=== PATIENT | male | born 1955 | race Caucasian/White ===

== ENCOUNTER → 2017-01-17 | Outpatient (CLI) | payer OTHER ==
--- NOTE | 2017-01-22 15:04 | P.ARTDOP ---
Arterial Doppler LOWER EXTREMITY ARTERIAL DOPPLER: DATE OF SERVICE: 01/17/2017 Reason for study: Status post leg stents. Doppler waveforms: Multiphasic bilaterally throughout. Pulse volume recording: []. Pressure gradients: Mild gradients above the knee. Ankle-brachial indices: 0.84 on the right and 0.94 on the left. Toe pressures: 86 on the right, 117 on the left Impression: Mild bilateral fem-pop disease.
== END | disposition home or self-care (01) ==
LOC: RADUSWWP 12:20
PROVIDERS: ATTEND Internal Medicine Cardiovascular Disease
DX: I73.9 Peripheral vascular disease, unspecified (principal)
CPT/HCPCS: 93922

== ENCOUNTER → 2017-01-22 | Outpatient (CLI) | payer OTHER ==
[2017-01-22 10:16] LABS: CH 30.2; CHCM 32.5; HCT 44.4 % (39.0-53.0); HDW 2.77; HGB 14.4 gm/dL (13.0-17.5); MCH 30.2 pg (25.0-35.0); MCHC 32.3 g/dL (31.0-37.0); MCV 93.4 fL (80.0-100.0); Mean Platelet Volume 7.1; RBC 4.75 m/uL (4.30-5.90); WBC 4.9 k/uL (3.8-10.6)
[2017-01-22 10:37] LABS: Anion Gap 10 mmol/L; Blood Urea Nitrogen 16 mg/dL (9-20); Carbon Dioxide 24 mmol/L (22-30); Chloride 103 mmol/L (98-107); Magnesium 1.8 mg/dL (1.6-2.3); Potassium 4.7 mmol/L (3.5-5.1); Sodium 137 mmol/L (137-145)
[2017-01-22 12:44] LABS: Non-African American GFR(MDRD) >60 (>60 ml/min/1.73 sqM)
== END | disposition home or self-care (01) ==
LOC: LABWHC1 09:52
PROVIDERS: ATTEND Internal Medicine Cardiovascular Disease
DX: I25.10 Atherosclerotic heart disease of native coronary artery without angina pectoris (principal)
CPT/HCPCS: 36415; 80051; 82565; 83735; 84520; 85027

== ENCOUNTER 2019-01-27 05:28 | Day surgery (SDC) | payer MEDICARE, OTHER ==
[2019-01-22 13:32] VITALS: BMI 34.8
[2019-01-27] MEDS ORDERED: LACTATED RINGERS 1,000 ML IV SCH (05:59)
[2019-01-27 07:19] VITALS: TEMP 98
[2019-01-27] MEDS ORDERED: LACTATED RINGERS 1,000 ML IV ONE ×2 (07:30)
[2019-01-27 07:31] LABS: Glucose,Whole Blood 55 mg/dL (75-99)
[2019-01-27] MEDS ORDERED: DEXTROSE 50% SYRINGE 50 ML IVP ONE (07:33)
[2019-01-27] MEDS ORDERED: DEXTROSE 50% SYRINGE 50 ML IVP STA (07:40)
[2019-01-27 07:55] LABS: Glucose,Whole Blood 135 mg/dL (75-99)
[2019-01-27] MEDS ORDERED: GLUCAGON 1 MG/ML VIAL ONE (08:06)
[2019-01-27] MEDS ORDERED: LABETALOL 5 MG/ML VIAL MDV ONE ×2 (08:06)
[2019-01-27] MEDS ORDERED: MIDAZOLAM 2 MG/2 ML VIAL ONE (08:06)
[2019-01-27] MEDS ORDERED: PROPOFOL 10 MG/ML 20 ML VIAL IV ONE (08:06)
[2019-01-27] MEDS ORDERED: fentaNYL (PF) 50 MCG/ML 2 ML AMP ONE (08:06)
--- NOTE | 2019-01-27 08:14 | P.GSHP ---
History of Present Illness H&P Date: 01/27/19 Chief Complaint: GI bleed This a 63-year-old male. Patient was found to have Hemoccult-positive stool. He presents today for colonoscopy. Past Medical History Past Medical History: Coronary Artery Disease (CAD), Heart Failure, COPD, Diabetes Mellitus, Fibromyalgia, GERD/Reflux, GI Bleed, Hyperlipidemia, Hypertension, Myocardial Infarction ([place]), Sleep Apnea/CPAP/BIPAP, Vascular Disorder Additional Past Medical History / Comment(s): RECTAL BLEEDING. BRIUSES EASILY. NO TX FOR SLEEP APNEA. NEUROPATHY FEET. Last Myocardial Infarction Date:: History of Any Multi-Drug Resistant Organisms: None Reported Past Surgical History: Coronary Bypass/CABG, Heart Catheterization With Stent Additional Past Surgical History / Comment(s): HEART STENTS X12. TRIPLE CABG. RT LEG VASCULAR SURG X5, LT LEG VASCULAR SURG X3. MYRTLE EYE SURG. COLONOSCOPY. Past Anesthesia/Blood Transfusion Reactions: No Reported Reaction Date of Last Stent Placement:: 07/2018 Smoking Status: Former smoker - Past Family History Mother Family Medical History: Cancer Medications and Allergies Home Medications Medication Instructions Recorded Confirmed Type Acetaminophen [Tylenol Extra 500 - 1,000 mg PO DAILY PRN 01/22/19 01/22/19 History Strength] Albuterol Sulfate [Proair Hfa] 1 - 2 puff INHALATION Q6HR PRN 01/22/19 01/22/19 History Atorvastatin [Lipitor] 80 mg PO HS 01/22/19 01/22/19 History Cetirizine HCl [Zyrtec] 10 mg PO DAILY 01/22/19 01/22/19 History Clopidogrel [Plavix] 75 mg PO DAILY 01/22/19 01/22/19 History Empagliflozin [Jardiance] 10 mg PO DAILY 01/22/19 01/22/19 History Ergocalciferol [Vitamin D2] 50,000 unit PO MOFR 01/22/19 01/22/19 History Fenofibrate Nanocrystallized 145 mg PO DAILY 01/22/19 01/22/19 History [Fenofibrate] Fluticasone/Umeclidin/Vilanter 1 inhalation INHALATION DAILY 01/22/19 01/22/19 History [Trelegy Ellipta 100-62.5-25] Furosemide [Lasix] 40 mg PO DAILY 01/22/19 01/22/19 History Gabapentin 800 mg PO QID 01/22/19 01/22/19 History HYDROcodone/APAP 10-325MG [[place] 1 tab PO QID PRN 01/22/19 01/22/19 History 10-325] Insulin NPL/Insulin Lispro 70 unit SQ HS 01/22/19 01/22/19 History [humaLOG MIX 75-25 VIAL] Insulin NPL/Insulin Lispro 90 unit SQ [id number] 01/22/19 01/22/19 History [humaLOG MIX 75-25 VIAL] Isosorbide Mononitrate [Isosorbide 30 mg PO DAILY 01/22/19 01/22/19 History Mononitrate ER] Metoprolol Tartrate [Lopressor] 25 mg PO DAILY 01/22/19 01/22/19 History Multivit-Min/Ferrous Sulfate [One 1 each PO DAILY 01/22/19 01/22/19 History Daily Multivitamin-Mineral] Omeprazole 20 mg PO DAILY 01/22/19 01/22/19 History Potassium Chloride ER [K-Dur 10] 20 meq PO DAILY 01/22/19 01/22/19 History Pregabalin [Lyrica] 150 mg PO TID 01/22/19 01/22/19 History Ranitidine HCl [Zantac] 300 mg PO DAILY 01/22/19 01/22/19 History Ranolazine [Ranexa] 500 mg PO BID 01/22/19 01/22/19 History Sacubitril/Valsartan [Entresto 49 1 each PO DAILY 01/22/19 01/22/19 History mg-51 mg Tablet] Simvastatin [Zocor] 20 mg PO HS 01/22/19 01/22/19 History Allergies Allergy/AdvReac Type Severity Reaction Status Date / Time albiglutide [From Tanzeum] Allergy Diarrhea Unverified 01/22/19 12:43 duloxetine HCl Allergy Swelling Unverified 01/22/19 12:43 [From Cymbalta] Surgical - Exam Vital Signs Temp Pulse Resp BP Pulse Ox 98.0 F 87 18 203/96 94 L 01/27/19 07:15 01/27/19 07:15 01/27/19 07:15 01/27/19 07:15 01/27/19 07:15 - General well developed, well nourished, no distress - Eyes PERRL - ENT normal pinna - Neck no masses - Respiratory normal expansion - Cardiovascular Rhythm: regular - Abdomen Abdomen: soft, non tender Results - Labs Abnormal Lab Results - Last 24 Hours (Table) 01/27/19 01/27/19 Range/Units 07:28 07:53 POC Glucose (mg/dL) 55 L 135 H (75-99) mg/dL Assessment and Plan Assessment: GI bleed. We'll perform colonoscopy.
--- NOTE | 2019-01-27 08:36 | P.OP ---
Date of Procedure: 01/27/19 Preoperative Diagnosis: GI bleed Postoperative Diagnosis: Rectal polyp, transverse colon polyp Procedure(s) Performed: Colonoscopy Anesthesia: MAC Surgeon: Carlos Mendoza Pathology: other (Rectal polyp, transverse colon polyp) Condition: stable Disposition: PACU Description of Procedure: The patient's placed on the endoscopy table in the lateral position. He received IV sedation. Digital rectal exam was performed which revealed mild internal/external hemorrhoids.. The flexible colonoscope was then placed patient anus and passed throughout the entire colon. The ileocecal valve was visualized. The cecum appeared normal. The right colon appeared normal. In the transverse colon there was a polyp seen this removed with the snare. Scope was then brought back and the remainder of the transverse colon appeared normal. The descending colon appeared normal. The sigmoid colon was normal. Scope was then brought back the rectum and a small polyp was seen was removed with the snare and cold forcep. Scope was withdrawn for patient. There were internal and external hemorrhoids. There was no significant GI bleed seen. The patient may have had GI bleed from his hemorrhoids or polyp.
[2019-01-27 08:37] VITALS: RESP 16
[2019-01-27 08:38] LABS: Glucose,Whole Blood 138 mg/dL (75-99)
[2019-01-27 09:02] VITALS: BP 180/90; PULSE 70
== END 2019-01-27 09:25 | disposition home or self-care (01) ==
LOC: ORWHC2ENDO 05:28
PROVIDERS: ATTEND Surgery
DX: K62.1 Rectal polyp (principal); D12.3 Benign neoplasm of transverse colon; K64.8 Other hemorrhoids; K64.4 Residual hemorrhoidal skin tags; K92.1 Melena; I25.10 Atherosclerotic heart disease of native coronary artery without angina pectoris; I11.0 Hypertensive heart disease with heart failure; I50.9 Heart failure, unspecified; Z87.891 Personal history of nicotine dependence; J44.9 Chronic obstructive pulmonary disease, unspecified; E11.42 Type 2 diabetes mellitus with diabetic polyneuropathy; M79.7 Fibromyalgia; K21.9 Gastro-esophageal reflux disease without esophagitis; E78.5 Hyperlipidemia, unspecified; I25.2 Old myocardial infarction; G47.30 Sleep apnea, unspecified; Z95.1 Presence of aortocoronary bypass graft; Z95.5 Presence of coronary angioplasty implant and graft; Z79.02 Long term (current) use of antithrombotics/antiplatelets; Z79.4 Long term (current) use of insulin; Z79.891 Long term (current) use of opiate analgesic; Z79.51 Long term (current) use of inhaled steroids; Z79.899 Other long term (current) drug therapy; Z88.8 Allergy status to other drugs, medicaments and biological substances
CPT/HCPCS: 88305; 45385; J2250; J1610; J3010; J2704

== ENCOUNTER 2020-04-16 12:32 | Inpatient (IN) | payer MEDICARE ==
[2020-04-16 13:00] LABS: Glucose,Whole Blood >600 mg/dL (75-99)
[2020-04-16] MEDS ORDERED: INSULIN REGULAR BOLUS (FROM DRIP BAG) IV ONE (13:07)
[2020-04-16] MEDS ORDERED: SODIUM CHLORIDE 0.9% 1,000 ML IV ONE (13:07)
[2020-04-16] MEDS ORDERED: ASPIRIN 81 MG PO STA (13:08)
[2020-04-16] MEDS ORDERED: NITROGLYCERIN OINT 1 INCH/GM PACKET TOPICAL STA (13:08)
[2020-04-16] MEDS ORDERED: ONDANSETRON 4 MG/2 ML VIAL IVP STA (13:09)
--- NOTE | 2020-04-16 13:12 | ED ---
General Adult HPI - General Chief complaint: Weakness Stated complaint: No energy, not eating Time Seen by Provider: 04/16/20 12:54 Source: patient, family, RN notes reviewed Mode of arrival: wheelchair Limitations: no limitations - History of Present Illness Initial comments: Patient is a pleasant 65-year-old male presenting to the emergency department with fatigue and vomiting. Symptoms started several days ago and have progressed. Symptoms much worse today. Patient feels generally weak all over and is having difficulty getting up and moving around. Patient amiss to having some chest discomfort. Patient does have strong cardiac history of previous CABG and multiple previous stents. Patient has had nausea and vomiting. Unclear last time patient checked his blood sugar. No isolated area of weakness. No confusion. - Related Data Home Medications Medication Instructions Recorded Confirmed Acetaminophen [Tylenol Extra 500 - 1,000 mg PO DAILY PRN 01/22/19 01/22/19 Strength] Albuterol Sulfate [Proair Hfa] 1 - 2 puff INHALATION Q6HR PRN 01/22/19 01/22/19 Atorvastatin [Lipitor] 80 mg PO HS 01/22/19 01/22/19 Cetirizine HCl [Zyrtec] 10 mg PO DAILY 01/22/19 01/22/19 Clopidogrel [Plavix] 75 mg PO DAILY 01/22/19 01/22/19 Empagliflozin [Jardiance] 10 mg PO DAILY 01/22/19 01/22/19 Ergocalciferol [Vitamin D2] 50,000 unit PO MOFR 01/22/19 01/22/19 Fenofibrate Nanocrystallized 145 mg PO DAILY 01/22/19 01/22/19 [Fenofibrate] Fluticasone/Umeclidin/Vilanter 1 inhalation INHALATION DAILY 01/22/19 01/22/19 [Trelegy Ellipta 100-62.5-25] Furosemide [Lasix] 40 mg PO DAILY 01/22/19 01/22/19 Gabapentin 800 mg PO QID 01/22/19 01/22/19 HYDROcodone/APAP 10-325MG [[place] 1 tab PO QID PRN 01/22/19 01/22/19 10-325] Insulin NPL/Insulin Lispro 70 unit SQ HS 01/22/19 01/22/19 [humaLOG MIX 75-25 VIAL] Insulin NPL/Insulin Lispro [facility] 01/22/19 01/22/19 [humaLOG MIX 75-25 VIAL] Isosorbide Mononitrate [Isosorbide 30 mg PO DAILY 01/22/19 01/22/19 Mononitrate ER] Metoprolol Tartrate [Lopressor] 25 mg PO DAILY 01/22/19 01/22/19 Multivit-Min/Ferrous Sulfate [One 1 each PO DAILY 01/22/19 01/22/19 Daily Multivitamin-Mineral] Omeprazole 20 mg PO DAILY 01/22/19 01/22/19 Potassium Chloride ER [K-Dur 10] 20 meq PO DAILY 01/22/19 01/22/19 Pregabalin [Lyrica] 150 mg PO TID 01/22/19 01/22/19 Ranitidine HCl [Zantac] 300 mg PO DAILY 01/22/19 01/22/19 Ranolazine [Ranexa] 500 mg PO BID 01/22/19 01/22/19 Sacubitril/Valsartan [Entresto 49 1 each PO DAILY 01/22/19 01/22/19 mg-51 mg Tablet] Simvastatin [Zocor] 20 mg PO HS 01/22/19 01/22/19 Allergies Allergy/AdvReac Type Severity Reaction Status Date / Time albiglutide [From Tanzeum] Allergy Diarrhea Verified 04/16/20 12:41 duloxetine HCl Allergy Swelling Verified 04/16/20 12:41 [From Cymbalta] Review of Systems ROS Statement: Those systems with pertinent positive or pertinent negative responses have been documented in the HPI. ROS Other: All systems not noted in ROS Statement are negative. Constitutional: Denies: fever Eyes: Denies: eye pain ENT: Denies: ear pain Respiratory: Denies: cough Cardiovascular: Reports: chest pain Endocrine: Reports: fatigue Gastrointestinal: Reports: nausea, vomiting. Denies: abdominal pain Genitourinary: Denies: dysuria Musculoskeletal: Denies: back pain Skin: Denies: as per HPI Neurological: Reports: weakness (Generalized). Denies: headache, confusion Past Medical History Past Medical History: Coronary Artery Disease (CAD), Heart Failure, COPD, Diabetes Mellitus, Fibromyalgia, GERD/Reflux, GI Bleed, Hyperlipidemia, Hypertension, Myocardial Infarction ([place]), Sleep Apnea/CPAP/BIPAP, Vascular Disorder Additional Past Medical History / Comment(s): RECTAL BLEEDING. BRIUSES EASILY. NO TX FOR SLEEP APNEA. NEUROPATHY FEET. Last Myocardial Infarction Date:: History of Any Multi-Drug Resistant Organisms: None Reported Past Surgical History: Coronary Bypass/CABG, Heart Catheterization With Stent Additional Past Surgical History / Comment(s): HEART STENTS X12. TRIPLE CABG. RT LEG VASCULAR SURG X5, LT LEG VASCULAR SURG X3. MYRTLE EYE SURG. COLONOSCOPY. Past Anesthesia/Blood Transfusion Reactions: No Reported Reaction Date of Last Stent Placement:: 07/2018 Past Psychological History: No Psychological Hx Reported Smoking Status: Never smoker Past Alcohol Use History: Daily Past Drug Use History: None Reported - Past Family History Mother Family Medical History: Cancer General Exam Limitations: no limitations General appearance: other (Patient is slightly drowsy. Patient does open eyes to voice and communicates and follow commands.) Head exam: Present: normocephalic Eye exam: Present: normal appearance, PERRL ENT exam: Present: normal oropharynx Neck exam: Present: normal inspection Respiratory exam: Present: normal lung sounds bilaterally. Absent: chest wall tenderness Cardiovascular Exam: Present: regular rate, normal rhythm Expanded Peripheral pulses: 2+: Radial (R), Radial (L), Posterior Tibialis (R), Posterior Tibialis (L) GI/Abdominal exam: Present: soft. Absent: tenderness Extremities exam: Present: normal inspection Neurological exam: Present: alert (Slightly drowsy), oriented X3, CN II-XII intact. Absent: motor sensory deficit Psychiatric exam: Present: flat affect Skin exam: Present: normal color Course Vital Signs 04/16/20 12:41 Temperature 97.9 F Pulse Rate 105 H Respiratory 18 Rate Blood Pressure 134/73 O2 Sat by Pulse 99 Oximetry EKG Findings - EKG Comments: EKG Findings:: Normal sinus rhythm at 100. NH 158. QRS 98. QT 360. QTC 464. Superior axis. Inferior Q waves. Q wave in V1. No acute ST change. Medical Decision Making - Medical Decision Making Patient reevaluated. Patient and family updated. Case discussed with Dr. Javed, who will admit covering for Dr. Marin. Case also discussed with Dr. Michaud who agrees with ICU admission. He will consult - Lab Data Result diagrams: 04/16/20 13:21 04/16/20 13:21 Lab Results 04/16/20 04/16/20 04/16/20 Range/Units 12:53 13:21 13:21 WBC 12.5 H (3.8-10.6) k/uL RBC 5.39 (4.30-5.90) m/uL Hgb 16.5 (13.0-17.5) gm/dL Hct 53.9 H (39.0-53.0) % MCV 100.1 H (80.0-100.0) fL MCH 30.6 (25.0-35.0) pg MCHC 30.5 L (31.0-37.0) g/dL RDW 13.1 (11.5-15.5) % Plt Count 323 (150-450) k/uL Neutrophils % 91 % Lymphocytes % 3 % Monocytes % 5 % Eosinophils % 0 % Basophils % 0 % Neutrophils # 11.4 H (1.3-7.7) k/uL Lymphocytes # 0.4 L (1.0-4.8) k/uL Monocytes # 0.7 (0-1.0) k/uL Eosinophils # 0.0 (0-0.7) k/uL Basophils # 0.0 (0-0.2) k/uL Hypochromasia Moderate PT 9.4 (9.0-12.0) sec INR 0.9 (<1.2) APTT 23.0 (22.0-30.0) sec Sodium (137-145) mmol/L Potassium (3.5-5.1) mmol/L Chloride (98-107) mmol/L Carbon Dioxide (22-30) mmol/L Anion Gap mmol/L BUN (9-20) mg/dL Creatinine (0.66-1.25) mg/dL Est GFR (CKD-EPI)AfAm (>60 ml/min/1.73 sqM) Est GFR (CKD-EPI)NonAf (>60 ml/min/1.73 sqM) Glucose (74-99) mg/dL POC Glucose (mg/dL) >600 H (75-99) mg/dL POC Glu Commercial Administrator ID Rajiv Dana Calcium (8.4-10.2) mg/dL Magnesium (1.6-2.3) mg/dL Total Bilirubin (0.2-1.3) mg/dL AST (17-59) U/L ALT (4-49) U/L Alkaline Phosphatase (38-126) U/L Troponin I (0.000-0.034) ng/mL Total Protein (6.3-8.2) g/dL Albumin (3.5-5.0) g/dL Amylase (30-110) U/L Lipase (23-300) U/L Acetone, Qual (Negative) 04/16/20 04/16/20 04/16/20 Range/Units 13:21 13:21 14:25 WBC (3.8-10.6) k/uL RBC (4.30-5.90) m/uL Hgb (13.0-17.5) gm/dL Hct (39.0-53.0) % MCV (80.0-100.0) fL MCH (25.0-35.0) pg MCHC (31.0-37.0) g/dL RDW (11.5-15.5) % Plt Count (150-450) k/uL Neutrophils % % Lymphocytes % % Monocytes % % Eosinophils % % Basophils % % Neutrophils # (1.3-7.7) k/uL Lymphocytes # (1.0-4.8) k/uL Monocytes # (0-1.0) k/uL Eosinophils # (0-0.7) k/uL Basophils # (0-0.2) k/uL Hypochromasia PT (9.0-12.0) sec INR (<1.2) APTT (22.0-30.0) sec Sodium 132 L (137-145) mmol/L Potassium 5.7 H (3.5-5.1) mmol/L Chloride 92 L (98-107) mmol/L Carbon Dioxide 5 L* (22-30) mmol/L Anion Gap 35 mmol/L BUN 40 H (9-20) mg/dL Creatinine 1.83 H (0.66-1.25) mg/dL Est GFR (CKD-EPI)AfAm 44 (>60 ml/min/1.73 sqM) Est GFR (CKD-EPI)NonAf 38 (>60 ml/min/1.73 sqM) Glucose 716 H* (74-99) mg/dL POC Glucose (mg/dL) >600 H (75-99) mg/dL POC Glu Commercial Administrator ID Nasrin Alba Calcium 9.8 (8.4-10.2) mg/dL Magnesium 2.5 H (1.6-2.3) mg/dL Total Bilirubin 1.0 (0.2-1.3) mg/dL AST 23 (17-59) U/L ALT 20 (4-49) U/L Alkaline Phosphatase 112 (38-126) U/L Troponin I 0.421 H* (0.000-0.034) ng/mL Total Protein 7.3 (6.3-8.2) g/dL Albumin 4.7 (3.5-5.0) g/dL Amylase 262 H (30-110) U/L Lipase 2077 H (23-300) U/L Acetone, Qual Positive (Negative) - Radiology Data Radiology results: image reviewed (Chest x-ray shows borderline cardiomegaly. Minimal right effusion.) Critical Care Time Critical Care Time: Yes Total Critical Care Time: 33 Disposition Clinical Impression: Diabetic ketoacidosis Disposition: ADMITTED IP TO THIS HOSP Condition: Critical Is patient prescribed a controlled substance at d/c from ED?: No Referrals: Sindy Kamara DO [Primary Care Provider] - 1-2 days Decision Time: 14:32
[2020-04-16] MEDS: INSULIN REGULAR 100 UNIT in SODIUM CHLORIDE 0.9% 100 ML IV SCH (13:31)
[2020-04-16 13:32] LABS: Basophils % (A) 0 %; Eosinophils % (A) 0 %; HCT 53.9 % (39.0-53.0); HGB 16.5 gm/dL (13.0-17.5); Hypochromasia Moderate; Lymphocytes # (A) 0.4 k/uL (1.0-4.8); Lymphocytes % (A) 3 %; MCH 30.6 pg (25.0-35.0); MCHC 30.5 g/dL (31.0-37.0); MCV 100.1 fL (80.0-100.0); Mean Platelet Volume 8.4; Monocytes # (A) 0.7 k/uL (0-1.0); Monocytes % (A) 5 %; Neutrophils # (A) 11.4 k/uL (1.3-7.7); Neutrophils % (A) 91 %; Platelet Count 323 k/uL (150-450); RBC 5.39 m/uL (4.30-5.90); RDW 13.1 % (11.5-15.5); WBC 12.5 k/uL (3.8-10.6)
[2020-04-16 13:37] LABS: African American GFR (CKD) 44 (>60 ml/min/1.73 sqM); Anion Gap 35 mmol/L; Blood Urea Nitrogen 40 mg/dL (9-20); Chloride 92 mmol/L (98-107); Potassium 5.7 mmol/L (3.5-5.1); Sodium 132 mmol/L (137-145)
[2020-04-16 13:38] LABS: ALT 20 U/L (4-49); AST 23 U/L (17-59); Albumin 4.7 g/dL (3.5-5.0); Alkaline Phosphatase 112 U/L (38-126); Amylase 262 U/L (30-110); Calcium 9.8 mg/dL (8.4-10.2); Magnesium 2.5 mg/dL (1.6-2.3); Non-African American GFR(CKD) 38 (>60 ml/min/1.73 sqM); Total Protein 7.3 g/dL (6.3-8.2)
[2020-04-16 13:42] LABS: INR 0.9 (<1.2); Prothrombin Time 9.4 sec (9.0-12.0)
[2020-04-16 13:51] LABS: Carbon Dioxide 5 mmol/L (22-30)
[2020-04-16 13:52] LABS: Glucose 716 mg/dL (74-99)
--- NOTE | 2020-04-16 13:57 | XR ---
EXAMINATION TYPE: XR chest 2V DATE OF EXAM: 04/16/2020 CLINICAL HISTORY: Chest pain TECHNIQUE: Frontal and lateral views of the chest are obtained. COMPARISON: Chest radiograph 03/13/2012. FINDINGS: Sternotomy wires and fixation plate and screws. Borderline cardiac megaly. Pulmonary vascu lature is normal. There is no focal air space opacity or pneumothorax seen. Small right pleural effus ion. The osseous structures are intact. IMPRESSION: 1. Borderline cardiomegaly. 2. Small right pleural effusion.
[2020-04-16 14:28] LABS: Glucose,Whole Blood >600 mg/dL (75-99)
[2020-04-16] MEDS ORDERED: NALOXONE 0.4 MG/ML 1 ML VIAL IV PRN (14:33)
[2020-04-16] MEDS ORDERED: HEPARIN SODIUM,PORCINE 5,000 UNIT/ML 1 ML VIAL IV ONE (14:36)
[2020-04-16 15:25] LABS: Glucose,Whole Blood 522 mg/dL (75-99)
[2020-04-16] MEDS: HEPARIN SOD,PORK IN 0.45% NACL 25,000 UNIT in 0.45% NACL 1 250ML.BAG IV SCH (15:38)
[2020-04-16] MEDS: SODIUM CHLORIDE 0.9% 1,000 ML IV SCH ×2 (15:42→21:17)
[2020-04-16 16:09] LABS: Glucose,Whole Blood 482 mg/dL (75-99)
[2020-04-16 17:15] LABS: Glucose,Whole Blood 467 mg/dL (75-99)
[2020-04-16] MEDS ORDERED: THIAMINE 100 MG/ML 2 ML VIAL IM STA (17:38)
[2020-04-16] MEDS ORDERED: LORazepam 2 MG/ML INJ IV PRN ×2 (17:38)
[2020-04-16 18:42] LABS: Glucose,Whole Blood 348 mg/dL (75-99)
[2020-04-16 19:14] LABS: Glucose,Whole Blood >600 mg/dL (75-99)
[2020-04-16 19:16] LABS: Glucose,Whole Blood 361 mg/dL (75-99)
[2020-04-16 19:33] LABS: Appearance,Urine Clear (Clear); Bilirubin,Urine 1+ (Negative); Blood,Urine Small (Negative); Color,Urine Yellow; Glucose,Urine (UA) 4+ (Negative); Hyaline Casts,Urine 10 /lpf (0-2); Leukocyte Esterase,Urine Negative (Negative); Mucus,Urine Rare /hpf; Nitrite,Urine Negative (Negative); PH, Urine 5.5 (5.0-8.0); Protein,Urine 2+ (Negative); RBC,Urine 1 /hpf (0-5); Specific Gravity,Urine 1.026 (1.001-1.035); WBC,Urine 1 /hpf (0-5)
[2020-04-16 19:35] LABS: Ketones,Urine 4+ (Negative)
[2020-04-16 20:15] LABS: Glucose,Whole Blood 347 mg/dL (75-99)
[2020-04-16 20:55] LABS: Glucose,Whole Blood 286 mg/dL (75-99)
[2020-04-16] MEDS: DEXTROSE 5%-0.45% NACL 1,000 ML with POTASSIUM CHLORIDE 20 MEQ IV SCH ×2 (21:18)
[2020-04-16 22:06] LABS: Glucose,Whole Blood 207 mg/dL (75-99)
--- NOTE | 2020-04-16 22:29 | P.HPIM ---
History of Present Illness H&P Date: 04/16/20 Chief Complaint: Generalized weakness Mr. Gonzalez is a 65-year-old male with a past medical history of insulin- dependent diabetes mellitus, coronary artery disease status post CABG, COPD, fibromyalgia, GERD, history of GI bleed, hypertension, hyperlipidemia, obstru ctive sleep apnea, severe peripheral vascular disease, bilateral lower extremity neuropathy, multiple vascular procedures done for bilateral lower extremities coming in with a chief complaint of vomiting and fatigue. Patient is a poor historian, his friend and son at the bedside and tried to provide as the history. His friend mentions that for the past 3 to 4 weeks patient has decreased p.o. intake and for 1 week he has been having generalized weakness. Patient mentioned that for the past couple of days he did not take his insulin. He denies having any fevers chills or rigors. He was only complaining of generalized weakness. Patient also has history of extensive alcohol abuse, he drinks 2/5 every day. Complete review of systems could not be done as the patient seems to be confused at times. In the emergency patient had EKG done that was showing normal sinus rhythm with no acute ST or T wave changes. He had a white count of 12.5, hemoglobin 16.5 with MCV 100.1, sodium 132, potassium 4.7, chloride 92, bicarb 5, BUN 40, creatinine 1.83, blood glucose of 716, troponin 0 0.764, amylase 2632, lipase 2077. So the patient was found to be in DKA, he was started on insulin drip and due to elevated troponins he was started on heparin drip as well and admitted to the ICU for further management. Review of Systems REVIEW OF SYSTEMS: CONSTITUTIONAL: No fever, no malaise, no fatigue. HEENT: No recent visual problems or hearing problems. Denied any sore throat. CARDIOVASCULAR: No orthopnea, PND, no palpitations, no syncope. PULMONARY: No shortness of breath, no cough, no hemoptysis. GASTROINTESTINAL: No diarrhea, no nausea,no abdominal pain. Patient did throw up while having a seizure. NEUROLOGICAL: No headaches, no weakness, no numbness. HEMATOLOGICAL: Denies any bleeding or petechiae. GENITOURINARY: Denies any burning micturition, frequency, or urgency. MUSCULOSKELETAL/RHEUMATOLOGICAL: Denies any joint pain, swelling, or any muscle pain. ENDOCRINE: Denies any polyuria or polydipsia. The rest of the 13-point review of systems is negative. ROS unobtainable: due to mental status Past Medical History Past Medical History: Coronary Artery Disease (CAD), Heart Failure, COPD, Diabetes Mellitus, Fibromyalgia, GERD/Reflux, GI Bleed, Hyperlipidemia, Hyper tension, Myocardial Infarction (MA), Sleep Apnea/CPAP/BIPAP, Vascular Disorder Additional Past Medical History / Comment(s): RECTAL BLEEDING. BRIUSES EASILY. NO TX FOR SLEEP APNEA. NEUROPATHY FEET. Last Myocardial Infarction Date:: History of Any Multi-Drug Resistant Organisms: None Reported Past Surgical History: Coronary Bypass/CABG, Heart Catheterization With Stent Additional Past Surgical History / Comment(s): HEART STENTS X12. TRIPLE CABG. RT LEG VASCULAR SURG X5, LT LEG VASCULAR SURG X3. MYRTLE EYE SURG. COLONOSCOPY. Past Anesthesia/Blood Transfusion Reactions: No Reported Reaction Date of Last Stent Placement:: 07/2018 Past Psychological History: No Psychological Hx Reported Smoking Status: Former smoker Past Alcohol Use History: Daily Additional Past Alcohol Use History / Comment(s): SMOKED 20 YEARS, 1 1/2 PPD, QUIT 1998. FIFTH LIQUOR PER WEEK. Past Drug Use History: None Reported - Past Family History Mother Family Medical History: Cancer Medications and Allergies Home Medications Medication Instructions Recorded Confirmed Type Acetaminophen [Tylenol Extra 500 - 1,000 mg PO DAILY PRN 01/22/19 04/16/20 History Strength] Cetirizine HCl [Zyrtec] 10 mg PO DAILY 01/22/19 04/16/20 History Clopidogrel [Plavix] 75 mg PO DAILY 01/22/19 04/16/20 History Empagliflozin [Jardiance] 10 mg PO DAILY 01/22/19 01/22/19 History Ergocalciferol [Vitamin D2] 50,000 unit PO MOFR 01/22/19 01/22/19 History Fenofibrate Nanocrystallized 145 mg PO DAILY 01/22/19 01/22/19 History [Fenofibrate] Fluticasone/Umeclidin/Vilanter 1 inhalation INHALATION DAILY 01/22/19 01/22/19 History [Trelegy Ellipta 100-62.5-25] Furosemide [Lasix] 40 mg PO DAILY 01/22/19 04/16/20 History Gabapentin 800 mg PO QID 01/22/19 01/22/19 History HYDROcodone/APAP 10-325MG [[place] 1 tab PO QID PRN 01/22/19 04/16/20 History 10-325] Insulin NPL/Insulin Lispro 70 unit SQ HS 01/22/19 04/16/20 History [humaLOG MIX 75-25 VIAL] Insulin NPL/Insulin Lispro 90 unit SQ AC-[id number] 01/22/19 04/16/20 History [humaLOG MIX 75-25 VIAL] Isosorbide Mononitrate [Isosorbide 30 mg PO DAILY 01/22/19 04/16/20 History Mononitrate ER] Metoprolol Tartrate [Lopressor] 50 mg PO BID 01/22/19 04/16/20 History Multivit-Min/Ferrous Sulfate [One 1 each PO DAILY 01/22/19 01/22/19 History Daily Multivitamin-Mineral] Omeprazole 20 mg PO DAILY 01/22/19 04/16/20 History Potassium Chloride ER [K-Dur 10] 20 meq PO DAILY 01/22/19 04/16/20 History Pregabalin [Lyrica] 150 mg PO TID 01/22/19 04/16/20 History Ranitidine HCl [Zantac] 300 mg PO DAILY 01/22/19 01/22/19 History Ranolazine [Ranexa] 500 mg PO BID 01/22/19 04/16/20 History Sacubitril/Valsartan [Entresto 49 1 each PO DAILY 01/22/19 01/22/19 History mg-51 mg Tablet] Simvastatin [Zocor] 20 mg PO HS 01/22/19 01/22/19 History Aspirin EC [Ecotrin Low Dose] 81 mg PO DAILY 04/16/20 04/16/20 History Atorvastatin [Lipitor] 40 mg PO HS 04/16/20 History Allergies Allergy/AdvReac Type Severity Reaction Status Date / Time albiglutide [From Tanzeum] Allergy Diarrhea Verified 04/16/20 14:39 duloxetine HCl Allergy Swelling Verified 04/16/20 14:39 [From Cymbalta] Physical Exam Vitals: Vital Signs Temp Pulse Pulse Resp BP BP Pulse Ox 04/16/20 21:00 96 16 168/92 94 L 04/16/20 20:00 98.5 F 93 19 168/92 95 04/16/20 19:00 96 19 168/92 95 04/16/20 18:49 97 94 L 04/16/20 18:00 105 H 17 138/84 98 04/16/20 17:00 102 H 22 147/93 94 L 04/16/20 16:00 97.6 F 105 H 24 116/102 97 04/16/20 15:30 95 22 155/79 98 04/16/20 15:00 97 162/93 98 04/16/20 14:30 88 146/73 97 04/16/20 14:00 94 147/66 96 04/16/20 13:30 89 172/81 94 L 04/16/20 12:41 97.9 F 105 H 18 134/73 99 Intake and Output 04/16/20 04/16/20 04/16/20 06:59 14:59 22:59 Intake Total 1200 Output Total 385 Balance 815 Intake: IV 1200 Sodium Chloride 0.9% 1, 1200 000 ml @ 200 mls/hr IV . Q5H [facility] Rx#:[id number] Output: Urine 385 Other: # Voids 0 # Bowel Movements 1 Weight 81.647 kg PHYSICAL EXAMINATION: GENERAL: slightly confused , poorly kempt HEENT: Pupils are round and equally reacting to light. EOMI. No scleral icterus. No conjunctival pallor. Normocephalic, atraumatic. Oral mucosa is dry. CARDIOVASCULAR: S1 and S2 present. No murmurs, rubs, or gallops. PULMONARY: Bilateral breath sounds are positive. No wheeze or crackles. ABDOMEN: Soft, mild tenderness in the right upper quadrant and epigastric area, nondistended, normoactive bowel sounds. No palpable organomegaly. MUSCULOSKELETAL: No joint swelling or deformity. EXTREMITIES: No cyanosis, clubbing, or pedal edema. Hyperpigmented and extremely tender to touch NEUROLOGICAL: Gross neurological examination did not reveal any focal deficits. Results CBC & Chem 7: 04/16/20 13:21 04/16/20 13:21 Labs: Abnormal Lab Results - Last 24 Hours (Table) 04/16/20 04/16/20 04/16/20 Range/Units 12:53 13:21 13:21 WBC 12.5 H (3.8-10.6) k/uL Hct 53.9 H (39.0-53.0) % MCV 100.1 H (80.0-100.0) fL MCHC 30.5 L (31.0-37.0) g/dL Neutrophils # 11.4 H (1.3-7.7) k/uL Lymphocytes # 0.4 L (1.0-4.8) k/uL APTT (22.0-30.0) sec Sodium 132 L (137-145) mmol/L Potassium 5.7 H (3.5-5.1) mmol/L Chloride 92 L (98-107) mmol/L Carbon Dioxide 5 L* (22-30) mmol/L BUN 40 H (9-20) mg/dL Creatinine 1.83 H (0.66-1.25) mg/dL Glucose 716 H* (74-99) mg/dL POC Glucose (mg/dL) >600 H (75-99) mg/dL Magnesium 2.5 H (1.6-2.3) mg/dL CK-MB (CK-2) (0.0-2.4) ng/mL Troponin I (0.000-0.034) ng/mL Amylase 262 H (30-110) U/L Lipase 2077 H (23-300) U/L Urine Protein (Negative) Urine Glucose (UA) (Negative) Urine Ketones (Negative) Urine Blood (Negative) Urine Bilirubin (Negative) Hyaline Casts (0-2) /lpf Urine Mucus (None) /hpf 04/16/20 04/16/20 04/16/20 Range/Units 13:21 14:25 15:23 WBC (3.8-10.6) k/uL Hct (39.0-53.0) % MCV (80.0-100.0) fL MCHC (31.0-37.0) g/dL Neutrophils # (1.3-7.7) k/uL Lymphocytes # (1.0-4.8) k/uL APTT (22.0-30.0) sec Sodium (137-145) mmol/L Potassium (3.5-5.1) mmol/L Chloride (98-107) mmol/L Carbon Dioxide (22-30) mmol/L BUN (9-20) mg/dL Creatinine (0.66-1.25) mg/dL Glucose (74-99) mg/dL POC Glucose (mg/dL) >600 H 522 H (75-99) mg/dL Magnesium (1.6-2.3) mg/dL CK-MB (CK-2) (0.0-2.4) ng/mL Troponin I 0.421 H* (0.000-0.034) ng/mL Amylase (30-110) U/L Lipase (23-300) U/L Urine Protein (Negative) Urine Glucose (UA) (Negative) Urine Ketones (Negative) Urine Blood (Negative) Urine Bilirubin (Negative) Hyaline Casts (0-2) /lpf Urine Mucus (None) /hpf 04/16/20 04/16/20 04/16/20 Range/Units 16:06 16:36 17:14 WBC (3.8-10.6) k/uL Hct (39.0-53.0) % MCV (80.0-100.0) fL MCHC (31.0-37.0) g/dL Neutrophils # (1.3-7.7) k/uL Lymphocytes # (1.0-4.8) k/uL APTT (22.0-30.0) sec Sodium (137-145) mmol/L Potassium (3.5-5.1) mmol/L Chloride (98-107) mmol/L Carbon Dioxide (22-30) mmol/L BUN (9-20) mg/dL Creatinine (0.66-1.25) mg/dL Glucose (74-99) mg/dL POC Glucose (mg/dL) 482 H 467 H (75-99) mg/dL Magnesium (1.6-2.3) mg/dL CK-MB (CK-2) (0.0-2.4) ng/mL Troponin I 0.578 H* (0.000-0.034) ng/mL Amylase (30-110) U/L Lipase (23-300) U/L Urine Protein (Negative) Urine Glucose (UA) (Negative) Urine Ketones (Negative) Urine Blood (Negative) Urine Bilirubin (Negative) Hyaline Casts (0-2) /lpf Urine Mucus (None) /hpf 04/16/20 04/16/20 04/16/20 Range/Units 18:37 18:40 19:12 WBC (3.8-10.6) k/uL Hct (39.0-53.0) % MCV (80.0-100.0) fL MCHC (31.0-37.0) g/dL Neutrophils # (1.3-7.7) k/uL Lymphocytes # (1.0-4.8) k/uL APTT (22.0-30.0) sec Sodium (137-145) mmol/L Potassium (3.5-5.1) mmol/L Chloride (98-107) mmol/L Carbon Dioxide (22-30) mmol/L BUN (9-20) mg/dL Creatinine (0.66-1.25) mg/dL Glucose (74-99) mg/dL POC Glucose (mg/dL) 348 H >600 H (75-99) mg/dL Magnesium (1.6-2.3) mg/dL CK-MB (CK-2) (0.0-2.4) ng/mL Troponin I (0.000-0.034) ng/mL Amylase (30-110) U/L Lipase (23-300) U/L Urine Protein 2+ H (Negative) Urine Glucose (UA) 4+ H (Negative) Urine Ketones 4+ H (Negative) Urine Blood Small H (Negative) Urine Bilirubin 1+ H (Negative) Hyaline Casts 10 H (0-2) /lpf Urine Mucus Rare H (None) /hpf 04/16/20 04/16/20 04/16/20 Range/Units 19:14 19:35 19:35 WBC (3.8-10.6) k/uL Hct (39.0-53.0) % MCV (80.0-100.0) fL MCHC (31.0-37.0) g/dL Neutrophils # (1.3-7.7) k/uL Lymphocytes # (1.0-4.8) k/uL APTT (22.0-30.0) sec Sodium (137-145) mmol/L Potassium (3.5-5.1) mmol/L Chloride (98-107) mmol/L Carbon Dioxide (22-30) mmol/L BUN (9-20) mg/dL Creatinine (0.66-1.25) mg/dL Glucose (74-99) mg/dL POC Glucose (mg/dL) 361 H (75-99) mg/dL Magnesium (1.6-2.3) mg/dL CK-MB (CK-2) 5.6 H (0.0-2.4) ng/mL Troponin I 0.764 H* (0.000-0.034) ng/mL Amylase (30-110) U/L Lipase (23-300) U/L Urine Protein (Negative) Urine Glucose (UA) (Negative) Urine Ketones (Negative) Urine Blood (Negative) Urine Bilirubin (Negative) Hyaline Casts (0-2) /lpf Urine Mucus (None) /hpf 04/16/20 04/16/20 04/16/20 Range/Units 20:14 20:53 21:24 WBC (3.8-10.6) k/uL Hct (39.0-53.0) % MCV (80.0-100.0) fL MCHC (31.0-37.0) g/dL Neutrophils # (1.3-7.7) k/uL Lymphocytes # (1.0-4.8) k/uL APTT 35.0 H (22.0-30.0) sec Sodium (137-145) mmol/L Potassium (3.5-5.1) mmol/L Chloride (98-107) mmol/L Carbon Dioxide (22-30) mmol/L BUN (9-20) mg/dL Creatinine (0.66-1.25) mg/dL Glucose (74-99) mg/dL POC Glucose (mg/dL) 347 H 286 H (75-99) mg/dL Magnesium (1.6-2.3) mg/dL CK-MB (CK-2) (0.0-2.4) ng/mL Troponin I (0.000-0.034) ng/mL Amylase (30-110) U/L Lipase (23-300) U/L Urine Protein (Negative) Urine Glucose (UA) (Negative) Urine Ketones (Negative) Urine Blood (Negative) Urine Bilirubin (Negative) Hyaline Casts (0-2) /lpf Urine Mucus (None) /hpf Assessment and Plan Assessment: ASSESSMENT Diabetic ketoacidosis Non-ST elevation MA Acute pancreatitis Macrocytosis Coronary artery disease status post CABG COPD Poorly controlled type 2 diabetes mellitus Fibromyalgia Hypertension Hyperlipidemia Obstructive sleep apnea Severe peripheral arterial disease Multiple vascular surgeries to bilateral lower extremities Diabetic peripheral neuropathy Alcohol dependence Remote history of smoking PLAN: Patient has been started on an insulin drip, as the patient's troponins are elevated he has been started on heparin drip as well. Due to patient's alcohol history will continue with seizure and DT precautions. We will continue with IV Protonix. Cardiology and pulmonary services have been consulted. Echocardiogram pending. Overall prognosis is poor due to chronic multiple conditions.
[2020-04-16] MEDS: METOCLOPRAMIDE 5 MG/ML 2 ML VIAL IVP PRN (23:23)
[2020-04-16] MEDS: LORazepam 2 MG/ML INJ IV PRN (23:24)
[2020-04-16 23:45] LABS: Glucose,Whole Blood 202 mg/dL (75-99)
[2020-04-17 00:57] LABS: Glucose,Whole Blood 146 mg/dL (75-99)
[2020-04-17] MEDS: INSULIN REGULAR 100 UNIT in SODIUM CHLORIDE 0.9% 100 ML IV SCH (00:58)
[2020-04-17 01:58] LABS: Glucose,Whole Blood 140 mg/dL (75-99)
[2020-04-17] MEDS: LORazepam 2 MG/ML INJ IV PRN ×2 (02:00→04:05)
[2020-04-17 02:58] LABS: Glucose,Whole Blood 194 mg/dL (75-99)
[2020-04-17] MEDS: DEXTROSE 5%-0.45% NACL 1,000 ML with POTASSIUM CHLORIDE 20 MEQ IV SCH ×2 (03:27)
[2020-04-17 03:58] LABS: Glucose,Whole Blood 251 mg/dL (75-99)
[2020-04-17 05:00] LABS: Glucose,Whole Blood 236 mg/dL (75-99)
[2020-04-17 05:07] LABS: Basophils % (A) 0 %; Eosinophils # (A) 0.1 k/uL (0-0.7); Eosinophils % (A) 1 %; HCT 41.4 % (39.0-53.0); HGB 13.8 gm/dL (13.0-17.5); Lymphocytes # (A) 0.8 k/uL (1.0-4.8); Lymphocytes % (A) 6 %; MCH 31.2 pg (25.0-35.0); MCHC 33.4 g/dL (31.0-37.0); Mean Platelet Volume 8.2; Monocytes % (A) 8 %; Neutrophils # (A) 10.7 k/uL (1.3-7.7); Neutrophils % (A) 84 %; Platelet Count 226 k/uL (150-450); RBC 4.43 m/uL (4.30-5.90); RDW 13.4 % (11.5-15.5); WBC 12.8 k/uL (3.8-10.6)
[2020-04-17 05:08] LABS: MCV 93.4 fL (80.0-100.0)
[2020-04-17 05:12] LABS: ALT 16 U/L (4-49); AST 20 U/L (17-59); African American GFR (CKD) >90 (>60 ml/min/1.73 sqM); Albumin 3.5 g/dL (3.5-5.0); Alkaline Phosphatase 90 U/L (38-126); Anion Gap 7 mmol/L; Blood Urea Nitrogen 34 mg/dL (9-20); Calcium 8.7 mg/dL (8.4-10.2); Carbon Dioxide 21 mmol/L (22-30); Chloride 110 mmol/L (98-107); Cholesterol 245 mg/dL (<200); Glucose 212 mg/dL (74-99); HDL Cholesterol 48 mg/dL (40-60); LDL Cholesterol,Calculated 156 mg/dL (0-99); Magnesium 2.3 mg/dL (1.6-2.3); Non-African American GFR(CKD) 87 (>60 ml/min/1.73 sqM); Phosphorus 1.8 mg/dL (2.5-4.5); Potassium 3.8 mmol/L (3.5-5.1); Sodium 138 mmol/L (137-145); Total Bilirubin 0.9 mg/dL (0.2-1.3); Total Protein 5.8 g/dL (6.3-8.2); Triglycerides 203 mg/dL (<150)
[2020-04-17] MEDS ORDERED: Phosphorus Replacement Protoco 1 EACH MISC MISCELLANE PRN (05:17)
[2020-04-17] MEDS ORDERED: DEXTROSE 5%-0.45% NACL 1,000 ML IV SCH (05:45)
[2020-04-17 05:52] LABS: Glucose,Whole Blood 232 mg/dL (75-99)
[2020-04-17] MEDS: POTASSIUM PHOSPHATE 10 MMOL in SODIUM CHLORIDE 0.9% 250 ML IV SCH ×2 (06:02→09:38)
[2020-04-17] MEDS: INSULIN ASPART (NovoLOG) 100 UNIT/ML VIAL SQ SCH ×4 (06:03→21:26)
[2020-04-17] MEDS: THIAMINE 100 MG TAB PO SCH ×2 (07:00→17:28)
[2020-04-17 08:54] LABS: INR 0.9 (<1.2); Partial Thromboplastin Time 31.8 sec (22.0-30.0); Prothrombin Time 9.8 sec (9.0-12.0)
[2020-04-17] MEDS ORDERED: SACUBITRIL/VALSARTAN 49 MG-51 MG TABLET PO SCH (09:00)
[2020-04-17] MEDS ORDERED: ASPIRIN 325 MG TAB PO SCH (09:00)
[2020-04-17] MEDS: ISOSORBIDE MONONITRATE ER 30 MG TAB.ER.24H PO SCH (09:34)
[2020-04-17] MEDS: METOPROLOL TARTRATE 50 MG TAB PO SCH ×2 (09:34→21:26)
[2020-04-17] MEDS: PANTOPRAZOLE 40 MG/10 ML VIAL IV SCH (09:34)
[2020-04-17] MEDS: ASPIRIN 81 MG PO SCH (09:34)
[2020-04-17] MEDS: CLOPIDOGREL 75 MG TAB PO SCH (09:34)
[2020-04-17] MEDS: SACUBITRIL/VALSARTAN 24 MG-26 MG TABLET PO SCH ×3 (09:39→22:36)
[2020-04-17] MEDS: RANOLAZINE 500 MG TAB.ER.12H PO SCH ×3 (09:39→22:35)
--- NOTE | 2020-04-17 11:00 | ECHOF ---
Referral Reason:Cardiac evaluation, elevated troponin MEASUREMENTS -------- HEIGHT: 172.7 cm WEIGHT: 93.4 kg BP: 168/82 IVSd: 1.3 cm (0.6 - 1.1) LVIDd: 4.6 cm (3.9 - 5.3) LVPWd: 1.4 cm (0.6 - 1.1) EDV(Teich): 96 ml IVSs: 1.4 cm LVIDs: 2.9 cm LVPWs: 1.6 cm %IVS Thck: 8 % ESV(Teich): 32 ml EF(Teich): 67 % %FS: 37 % SV(Teich): 64 ml Ao Diam: 3.9 cm (2.0 - 3.7) MV EXCURSION: 14.382 mm (> 18.000) MV EF SLOPE: 41 mm/s (70 - 150) EPSS: 0.6 cm MV E Anibal: 0.55 m/s MV DecT: 243 ms MV Dec Isabela: 2.3 m/s MV A Anibal: 1.41 m/s MV E/A Ratio: 0.39 MV PHT: 71 ms FINDINGS -------- Sinus rhythm. This was a techncally difficult study with suboptimal views, , Lumason utilized for enhancement of im ages. The left ventricular size is normal. There is mild concentric left ventricular hypertrophy. Overa ll left ventricular systolic function is low-normal with, an EF between 50 - 55 %. The right ventricle is normal in size. The left atrial size is normal. The right atrial size is normal. The aortic valve was not well visualized. Mild mitral regurgitation is present. Mild tricuspid regurgitation present. Right ventricular systolic pressure is normal at < 35 mmHg. The pulmonic valve was not well visualized. 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 There is no pericardial effusion. CONCLUSIONS -------- 1. The left ventricular size is normal. 2. There is mild concentric left ventricular hypertrophy. 3. Overall left ventricular systolic function is low-normal with, an EF between 50 - 55 %. 4. The right ventricle is normal in size. 5. The left atrial size is normal. 6. The right atrial size is normal. 7. The aortic valve was not well visualized. 8. Mild mitral regurgitation is present. 9. Mild tricuspid regurgitation present. 10. The pulmonic valve was not well visualized. 11. 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 HAT STEAMER: [place] Saeed RDCS
[2020-04-17] MEDS: D5-0.45% NACL WITH KCL 20MEQ/L 1,000 ML IV SCH ×2 (11:02→18:29)
[2020-04-17] MEDS: HEPARIN SODIUM,PORCINE 5,000 UNIT/ML 1 ML VIAL IV PRN (11:02)
[2020-04-17 11:52] LABS: Glucose,Whole Blood 356 mg/dL (75-99)
--- NOTE | 2020-04-17 12:39 | CONS ---
CONSULTATION Mr. Gonzalez is a 65-year-old male with a history of diabetes, history of peripheral artery disease, history of coronary artery disease who presented to the hospital with change in mental status, he was diagnosed with diabetic ketoacidosis. Apparently according to the records, the patient had a history of chronic alcohol intake. He is followed by Dr. Brown according to the notes. He is awake, confused at time, falling back to sleep easily, not able to answer all the questions. Cardiology consultation was requested because of mild elevation of the troponin. According to the notes, the patient's friend mentioned that he his p.o. intake has been down and he has been progressively weak with lack of energy and has not been taking his insulin. He has daily alcohol intake. I am not able to obtain an accurate past history, but reviewing the records, patient had a history of coronary artery bypass grafting, history of COPD, prior history of GI bleeding, hypertension, hyperlipidemia, and peripheral vascular disease. He denies any smoking at this time. MEDICATIONS: Included Ranexa 5 mg twice a day, Lyrica, potassium, omeprazole, metoprolol tartrate 250 mg twice a day, isosorbide mononitrate 30 mg daily, insulin, furosemide 40 mg daily, Plavix 75 mg daily, aspirin once a day, Lipitor, Entresto 49-51 mg and Jardiance. REVIEW OF SYSTEMS: Could not be obtained. PHYSICAL EXAMINATION: He is a 65-year-old male, alert, confused. Blood pressure running in the 160- 170 with a heart rate in the 90s. HEAD: Normocephalic. EYES: Sclerae nonicteric. NECK: Good upstroke, with bilateral bruit, no jugular venous distention. LUNGS: Clear to auscultation. HEART: Regular rate and rhythm, S1, S2. No S3 with systolic murmur 2/6 at the base. No diastolic murmur, no rub. ABDOMEN: Soft, nontender, positive bowel sounds. No organomegaly. EXTREMITIES: Trace edema with decreased distal pulses. LAB DATA: On admission showed a hemoglobin 16.5. His BUN and creatinine were 41 and 0.83. His bicarb was 5, potassium was 5.7. His troponin is 0.421 and 0.578 and 0.764. His lipase was 2077. He was acetone positive. His BUN and creatinine today are 34.9 and 3, potassium 3.8. He has a cholesterol of 245, LDL 156. His blood sugar is down to 212. His EKG revealed a sinus mechanism, left axis deviation, evidence of inferior and anterior wall myocardial infarction. Nonspecific ST-T wave changes. His chest x-ray shows no acute infiltrate. IMPRESSION: 1. Diabetic ketoacidosis with evidence consistent with pancreatitis. 2. Mild troponin elevation related to the diabetic ketoacidosis. 3. History of coronary artery disease, status post coronary artery bypass grafting, history of peripheral vascular disease. 4. Diabetes mellitus. 5. History of hypertension. 6. Hyperlipidemia. 7. Peripheral vascular disease. 8. Chronic alcohol intake. 9. Abnormal renal function improved, related to dehydration diabetic ketoacidosis. RECOMMENDATION: Will obtain echocardiogram with Doppler. I will restart him on his aspirin, Lipitor, and Plavix. I will continue IV heparin for 24 hours. I will follow his renal function. I will try to obtain the prior workup by his primary wood fence erector to see his prior history. At this time, I see no indication for angiography. Depending on his progress, further recommendation will be made. Thank you for this consult. Will follow with you. MMODL / IJN: [id number] / ALLAN
[2020-04-17 13:10] LABS: African American GFR (CKD) >90 (>60 ml/min/1.73 sqM); Anion Gap 12 mmol/L; Blood Urea Nitrogen 25 mg/dL (9-20); Carbon Dioxide 19 mmol/L (22-30); Chloride 106 mmol/L (98-107); Glucose 360 mg/dL (74-99); Non-African American GFR(CKD) >90 (>60 ml/min/1.73 sqM); Phosphorus 2.3 mg/dL (2.5-4.5); Potassium 4.3 mmol/L (3.5-5.1); Sodium 137 mmol/L (137-145)
--- NOTE | 2020-04-17 13:19 | P.CNPUL ---
History of Present Illness Consult date: 04/17/20 Requesting physician: Jenny Banks Reason for consult: other (Acute diabetic ketoacidosis) Chief complaint: Generalized weakness, vomiting and fatigue History of present illness: This is a 65-year-old white male with history of multiple medical problems including alcohol abuse, type 1 diabetes, coronary artery disease and previous CABG, fibromyalgia, hypertension, obstructive sleep apnea syndrome, peripheral vessel occlusive disease, peripheral neuropathy, multiple vascular procedures for bilateral lower extremities peripheral vessel occlusive disease, patient presented to the ER mostly with 1 day history of vomiting, fatigue, weakness. According to friend, patient had poor intake except alcohol for the last 3-4 weeks, and has been gradually feeling generally weak. Patient has not been compliant with his insulin. And upon presentation to the ER. Patient was noted to have significantly elevated blood sugar, positive ketones, elevated pancreatic enzymes, his blood sugar was as high as 716. And malaise of 2632 lipase of 7, patient was admitted with the impression of acute diabetic ketoacidosis, placed on the protocol, and I was asked to see him on consultation today. This morning, the patient is off insulin, he is on room air, his IV fluid is D5 45 at 100 mL per hour. And he is already on the sliding scale coverage. I have placed the patient on Levemir insulin 10 units subcu at night, patient is to be seen by cardiology for elevated troponin, and he remains on the alcohol withdrawal protocol. Patient is on heparin for elevated troponin. After seen by cardiology. Patient was placed on Lipitor Plavix and aspirin, and recommended that heparin continuous for 24 hours. Although his mild troponin elevation was felt to be most likely related to diabetic ketoacidosis presentation. Not much history could be obtained from the patient, patient was given Ativan earlier and he is on CIWA protocol. Review of Systems ROS unobtainable: due to mental status Past Medical History Past Medical History: Coronary Artery Disease (CAD), Heart Failure, COPD, Diabetes Mellitus, Fibromyalgia, GERD/Reflux, GI Bleed, Hyperlipidemia, Hypertension, Myocardial Infarction (ME), Sleep Apnea/CPAP/BIPAP, Vascular Disorder Additional Past Medical History / Comment(s): RECTAL BLEEDING. BRIUSES EASILY. NO TX FOR SLEEP APNEA. NEUROPATHY FEET. Last Myocardial Infarction Date:: History of Any Multi-Drug Resistant Organisms: None Reported Past Surgical History: Coronary Bypass/CABG, Heart Catheterization With Stent Additional Past Surgical History / Comment(s): HEART STENTS X12. TRIPLE CABG. RT LEG VASCULAR SURG X5, LT LEG VASCULAR SURG X3. MYRTLE EYE SURG. COLONOSCOPY. Past Anesthesia/Blood Transfusion Reactions: No Reported Reaction Date of Last Stent Placement:: 07/2018 Past Psychological History: No Psychological Hx Reported Smoking Status: Former smoker Past Alcohol Use History: Daily Additional Past Alcohol Use History / Comment(s): SMOKED 20 YEARS, 1 1/2 PPD, QUIT 1998. FIFTH LIQUOR PER WEEK. Past Drug Use History: None Reported - Past Family History Mother Family Medical History: Cancer Medications and Allergies Home Medications Medication Instructions Recorded Confirmed Type Acetaminophen [Tylenol Extra 500 - 1,000 mg PO DAILY PRN 01/22/19 04/17/20 History Strength] Cetirizine HCl [Zyrtec] 10 mg PO DAILY 01/22/19 04/17/20 History Clopidogrel [Plavix] 75 mg PO DAILY 01/22/19 04/17/20 History Ergocalciferol [Vitamin D2] 50,000 unit PO Q7D 01/22/19 04/17/20 History Furosemide [Lasix] 40 mg PO DAILY 01/22/19 04/17/20 History HYDROcodone/APAP 10-325MG [[place] 1 tab PO QID PRN 01/22/19 04/17/20 History 10-325] Insulin NPL/Insulin Lispro 70 unit SQ HS 01/22/19 04/17/20 History [humaLOG MIX 75-25 VIAL] Insulin NPL/Insulin Lispro 90 unit SQ AC-BRKFST 01/22/19 04/17/20 History [humaLOG MIX 75-25 VIAL] Isosorbide Mononitrate [Isosorbide 30 mg PO DAILY 01/22/19 04/17/20 History Mononitrate ER] Metoprolol Tartrate [Lopressor] 50 mg PO BID 01/22/19 04/17/20 History Omeprazole 20 mg PO DAILY 01/22/19 04/17/20 History Potassium Chloride ER [K-Dur 10] 20 meq PO DAILY 01/22/19 04/17/20 History Pregabalin [Lyrica] 150 mg PO TID 01/22/19 04/17/20 History Ranolazine [Ranexa] 500 mg PO BID 01/22/19 04/17/20 History Sacubitril/Valsartan [Entresto 49 1 tab PO DAILY 01/22/19 04/17/20 History mg-51 mg Tablet] Aspirin EC [Ecotrin Low Dose] 81 mg PO DAILY 04/16/20 04/17/20 History Atorvastatin [Lipitor] 40 mg PO HS 04/16/20 04/17/20 History Multivitamins, Thera [Multivitamin 1 tab PO DAILY 04/17/20 04/17/20 History (formulary)] Allergies Allergy/AdvReac Type Severity Reaction Status Date / Time albiglutide [From [facility]] Allergy Diarrhea Verified 04/16/20 14:39 duloxetine HCl Allergy Swelling Verified 04/16/20 14:39 [From Cymbalta] Physical Exam Vitals: Vital Signs Temp Pulse Pulse Resp BP BP Pulse Ox 04/17/20 08:00 98 F 91 16 154/85 96 04/17/20 06:00 86 16 168/82 95 04/17/20 05:00 82 15 129/66 94 L 04/17/20 04:00 98.0 F 91 13 178/101 97 04/17/20 03:00 86 14 164/81 93 L 04/17/20 02:00 98 13 147/77 94 L 04/17/20 01:00 87 13 175/85 94 L 04/17/20 00:02 100 15 150/77 92 L 04/17/20 00:00 98.4 F 93 16 150/77 93 L 04/16/20 23:00 101 H 22 155/72 96 04/16/20 22:00 98 11 L 158/81 95 04/16/20 21:00 96 16 168/92 94 L 04/16/20 20:00 98.5 F 93 19 168/92 95 04/16/20 19:00 96 19 168/92 95 04/16/20 18:49 97 94 L 04/16/20 18:00 105 H 17 138/84 98 04/16/20 17:00 102 H 22 147/93 94 L 04/16/20 16:00 97.6 F 105 H 24 116/102 97 04/16/20 15:30 95 22 155/79 98 04/16/20 15:00 97 162/93 98 04/16/20 14:30 88 146/73 97 04/16/20 14:00 94 147/66 96 04/16/20 13:30 89 172/81 94 L Intake and Output 04/16/20 04/17/20 04/17/20 22:59 06:59 14:59 Intake Total 1350 1303.488 190.245 Output Total 445 595 400 Balance 905 708.488 -209.755 Intake: IV 1200 Sodium Chloride 0.9% 1, 1200 000 ml @ 200 mls/hr IV . Q5H KENIA Rx#:[id number] Intake, IV Titration 150 1303.488 190.245 Amount Dextrose 5%-0.45% NaCl 1, 150 1200 000 ml @ 150 mls/hr IV . Q6H44M KENIA with Potassium Chloride 20 meq Rx#: [id number] Heparin Sod,Pork in 0.45% 190.245 NaCl 25,000 unit In 0.45 % NaCl 1 250ml.bag @ 12 UNITS/KG/HR 9.798 mls/hr IV .Q24H KENIA Rx#: [id number] Insulin Regular 100 unit 103.488 In Sodium Chloride 0.9% 100 ml @ 0.1 UNITS/KG/HR 8.246 mls/hr IV .[id number] KENIA Rx#:[id number] Output: Urine 445 595 400 Other: Voiding Method Indwelling Catheter # Voids 0 # Bowel Movements 1 Weight 93.5 kg 93.5 kg Physical Exam: Revealed a 65-year-old white male, sedated, sleepy, in no form of respiratory distress. Head: Atraumatic, normocephalic. HEENT:[Neck is supple.] [No neck masses.] [No thyromegaly.] [No JVD.] EOMI, no icterus, Chest: [Clear throughout, no crackles, no rhonchi, no wheezes.] Cardiac Exam: [Normal S1 and S2, no S3 gallop, no murmur.] Abdomen: [Soft, nontender, no megaly, no rebound, no guarding, normal bowel sounds.] Extremities: [No clubbing, no edema, no cyanosis.] Neurological Exam: Opens eyes to deep painful stimuli, quite sleepy, otherwise unremarkable. Psychiatric: Could not be assessed. Patient has a depressed mood, blunt affect. And could not assess mental status. Results - Laboratory Findings CBC and BMP: 04/17/20 04:30 04/17/20 04:30 PT/INR, D-dimer PT 9.8 sec (9.0-12.0) 04/17/20 08:20 INR 0.9 (<1.2) 04/17/20 08:20 Abnormal lab findings: Abnormal Labs 04/16/20 04/16/20 04/16/20 12:53 13:21 13:21 WBC 12.5 H Hct 53.9 H MCV 100.1 H MCHC 30.5 L Neutrophils # 11.4 H Lymphocytes # 0.4 L APTT Sodium 132 L Potassium 5.7 H Chloride 92 L Carbon Dioxide 5 L* BUN 40 H Creatinine 1.83 H Glucose 716 H* POC Glucose (mg/dL) >600 H Phosphorus Magnesium 2.5 H CK-MB (CK-2) Troponin I Total Protein Triglycerides Cholesterol LDL Cholesterol, Calc Amylase 262 H Lipase 2077 H Urine Protein Urine Glucose (UA) Urine Ketones Urine Blood Urine Bilirubin Hyaline Casts Urine Mucus 04/16/20 04/16/20 04/16/20 13:21 14:25 15:23 WBC Hct MCV MCHC Neutrophils # Lymphocytes # APTT Sodium Potassium Chloride Carbon Dioxide BUN Creatinine Glucose POC Glucose (mg/dL) >600 H 522 H Phosphorus Magnesium CK-MB (CK-2) Troponin I 0.421 H* Total Protein Triglycerides Cholesterol LDL Cholesterol, Calc Amylase Lipase Urine Protein Urine Glucose (UA) Urine Ketones Urine Blood Urine Bilirubin Hyaline Casts Urine Mucus 04/16/20 04/16/20 04/16/20 16:06 16:36 17:14 WBC Hct MCV MCHC Neutrophils # Lymphocytes # APTT Sodium Potassium Chloride Carbon Dioxide BUN Creatinine Glucose POC Glucose (mg/dL) 482 H 467 H Phosphorus Magnesium CK-MB (CK-2) Troponin I 0.578 H* Total Protein Triglycerides Cholesterol LDL Cholesterol, Calc Amylase Lipase Urine Protein Urine Glucose (UA) Urine Ketones Urine Blood Urine Bilirubin Hyaline Casts Urine Mucus 04/16/20 04/16/20 04/16/20 18:37 18:40 19:12 WBC Hct MCV MCHC Neutrophils # Lymphocytes # APTT Sodium Potassium Chloride Carbon Dioxide BUN Creatinine Glucose POC Glucose (mg/dL) 348 H >600 H Phosphorus Magnesium CK-MB (CK-2) Troponin I Total Protein Triglycerides Cholesterol LDL Cholesterol, Calc Amylase Lipase Urine Protein 2+ H Urine Glucose (UA) 4+ H Urine Ketones 4+ H Urine Blood Small H Urine Bilirubin 1+ H Hyaline Casts 10 H Urine Mucus Rare H 04/16/20 04/16/20 04/16/20 19:14 19:35 19:35 WBC Hct MCV MCHC Neutrophils # Lymphocytes # APTT Sodium Potassium Chloride Carbon Dioxide BUN Creatinine Glucose POC Glucose (mg/dL) 361 H Phosphorus Magnesium CK-MB (CK-2) 5.6 H Troponin I 0.764 H* Total Protein Triglycerides Cholesterol LDL Cholesterol, Calc Amylase Lipase Urine Protein Urine Glucose (UA) Urine Ketones Urine Blood Urine Bilirubin Hyaline Casts Urine Mucus 04/16/20 04/16/20 04/16/20 20:14 20:53 21:24 WBC Hct MCV MCHC Neutrophils # Lymphocytes # APTT 35.0 H Sodium Potassium Chloride Carbon Dioxide BUN Creatinine Glucose POC Glucose (mg/dL) 347 H 286 H Phosphorus Magnesium CK-MB (CK-2) Troponin I Total Protein Triglycerides Cholesterol LDL Cholesterol, Calc Amylase Lipase Urine Protein Urine Glucose (UA) Urine Ketones Urine Blood Urine Bilirubin Hyaline Casts Urine Mucus 04/16/20 04/16/20 04/17/20 22:04 23:44 00:55 WBC Hct MCV MCHC Neutrophils # Lymphocytes # APTT Sodium Potassium Chloride Carbon Dioxide BUN Creatinine Glucose POC Glucose (mg/dL) 207 H 202 H 146 H Phosphorus Magnesium CK-MB (CK-2) Troponin I Total Protein Triglycerides Cholesterol LDL Cholesterol, Calc Amylase Lipase Urine Protein Urine Glucose (UA) Urine Ketones Urine Blood Urine Bilirubin Hyaline Casts Urine Mucus 04/17/20 04/17/20 04/17/20 01:56 02:57 03:57 WBC Hct MCV MCHC Neutrophils # Lymphocytes # APTT Sodium Potassium Chloride Carbon Dioxide BUN Creatinine Glucose POC Glucose (mg/dL) 140 H 194 H 251 H Phosphorus Magnesium CK-MB (CK-2) Troponin I Total Protein Triglycerides Cholesterol LDL Cholesterol, Calc Amylase Lipase Urine Protein Urine Glucose (UA) Urine Ketones Urine Blood Urine Bilirubin Hyaline Casts Urine Mucus 04/17/20 04/17/20 04/17/20 04:30 04:30 04:58 WBC 12.8 H Hct MCV MCHC Neutrophils # 10.7 H Lymphocytes # 0.8 L APTT Sodium Potassium Chloride 110 H Carbon Dioxide 21 L BUN 34 H Creatinine Glucose 212 H POC Glucose (mg/dL) 236 H Phosphorus 1.8 L Magnesium CK-MB (CK-2) Troponin I Total Protein 5.8 L Triglycerides 203 H Cholesterol 245 H LDL Cholesterol, Calc 156 H Amylase Lipase Urine Protein Urine Glucose (UA) Urine Ketones Urine Blood Urine Bilirubin Hyaline Casts Urine Mucus 04/17/20 04/17/20 04/17/20 05:50 08:20 08:20 WBC Hct MCV MCHC Neutrophils # Lymphocytes # APTT 31.8 H Sodium Potassium Chloride Carbon Dioxide BUN Creatinine Glucose POC Glucose (mg/dL) 232 H Phosphorus Magnesium CK-MB (CK-2) Troponin I 0.505 H* Total Protein Triglycerides Cholesterol LDL Cholesterol, Calc Amylase Lipase Urine Protein Urine Glucose (UA) Urine Ketones Urine Blood Urine Bilirubin Hyaline Casts Urine Mucus 04/17/20 11:50 WBC Hct MCV MCHC Neutrophils # Lymphocytes # APTT Sodium Potassium Chloride Carbon Dioxide BUN Creatinine Glucose POC Glucose (mg/dL) 356 H Phosphorus Magnesium CK-MB (CK-2) Troponin I Total Protein Triglycerides Cholesterol LDL Cholesterol, Calc Amylase Lipase Urine Protein Urine Glucose (UA) Urine Ketones Urine Blood Urine Bilirubin Hyaline Casts Urine Mucus - Diagnostic Findings Chest x-ray: image reviewed (Borderline cardiomegaly otherwise unremarkable.) Assessment and Plan Assessment: Impression: Diabetic ketoacidosis Elevated troponin, possible non-ST elevation myocardial infarction Acute pancreatitis. History of coronary artery disease and previous CABG. History of underlying COPD, presently stable. Insulin-dependent diabetes mellitus. Obstructive sleep apnea syndrome. Severe peripheral vessel occlusive disease. alcohol dependence. History of fibromyalgia. Recommendation: Fully agree with the present treatment plan. Continue to monitor in the ICU for now. Continue to follow the DKA protocol. Echocardiogram is pending. Cardiology is evaluating for possible non-ST elevation myocardial infarction but felt to be less likely. We'll continue to follow while in the ICU. Time with Patient: Greater than 30
[2020-04-17] MEDS: HEPARIN SOD,PORK IN 0.45% NACL 25,000 UNIT in 0.45% NACL 1 250ML.BAG IV SCH (14:45)
[2020-04-17 17:25] LABS: Glucose,Whole Blood 345 mg/dL (75-99)
[2020-04-17 20:56] LABS: Glucose,Whole Blood 401 mg/dL (75-99)
[2020-04-17] MEDS ORDERED: INSULIN DETEMIR (LEVEMIR) 100 UNIT/ML SYR SQ ONE (21:01)
--- NOTE | 2020-04-17 21:09 | P.PN ---
Subjective Progress Note Date: 04/17/20 Principal diagnosis: DKA Pt's anion gap closed and he is transitioned to subcutaneous insulin. He remains lethargic today, does rouse and denies chest pain or shortness of breath. Echo performed and LVEF 55%. He remains on CIWA protocol with last dose of ativan at 4 am. Objective - Vital Signs Vital signs: Vital Signs Temp 98.1 F 04/17/20 12:00 Pulse 96 04/17/20 18:00 Resp 24 04/17/20 18:00 BP 160/95 04/17/20 18:00 Pulse Ox 96 04/17/20 18:00 Intake & Output 04/17/20 04/17/20 04/18/20 06:59 18:59 06:59 Intake Total 2053.488 235.559 Output Total 1040 1100 Balance 1013.488 -864.441 Weight 93.5 kg 93.5 kg Intake: IV 600 Sodium Chloride 0.9% 1, 600 000 ml @ 200 mls/hr IV . Q5H [facility] Rx#:[id number] Intake, IV Titration 1453.488 235.559 Amount Dextrose 5%-0.45% NaCl 1, 1350 000 ml @ 150 mls/hr IV . Q6H44M [facility] with Potassium Chloride 20 meq Rx#: [id number] Heparin Sod,Pork in 0.45% 235.559 NaCl 25,000 unit In 0.45 % NaCl 1 250ml.bag @ 12 UNITS/KG/HR 9.798 mls/hr IV .Q24H [facility]ENIA Rx#: [id number] Insulin Regular 100 unit 103.488 In Sodium Chloride 0.9% 100 ml @ 0.1 UNITS/KG/HR 8.246 mls/hr IV .[id number] KENIA Rx#:[id number] Output: Urine 1040 1100 Other: Voiding Method Indwelling Catheter Indwelling Catheter - Exam Gen: well nourished male in NAD HEENT: normocephalic, mucus membranes moist CV: RRR, no murmur Lungs: Normal effort, clear throughout Neuro: alert. No focal deficits - Labs CBC & Chem 7: 04/17/20 04:30 04/17/20 12:28 Labs: Abnormal Lab Results - Last 24 Hours (Table) 04/16/20 04/16/20 04/16/20 Range/Units 21:24 22:04 23:44 WBC (3.8-10.6) k/uL Neutrophils # (1.3-7.7) k/uL Lymphocytes # (1.0-4.8) k/uL APTT 35.0 H (22.0-30.0) sec Chloride (98-107) mmol/L Carbon Dioxide (22-30) mmol/L BUN (9-20) mg/dL Glucose (74-99) mg/dL POC Glucose (mg/dL) 207 H 202 H (75-99) mg/dL Phosphorus (2.5-4.5) mg/dL Troponin I (0.000-0.034) ng/mL Total Protein (6.3-8.2) g/dL Triglycerides (<150) mg/dL Cholesterol (<200) mg/dL LDL Cholesterol, Calc (0-99) mg/dL 04/17/20 04/17/20 04/17/20 Range/Units 00:55 01:56 02:57 WBC (3.8-10.6) k/uL Neutrophils # (1.3-7.7) k/uL Lymphocytes # (1.0-4.8) k/uL APTT (22.0-30.0) sec Chloride (98-107) mmol/L Carbon Dioxide (22-30) mmol/L BUN (9-20) mg/dL Glucose (74-99) mg/dL POC Glucose (mg/dL) 146 H 140 H 194 H (75-99) mg/dL Phosphorus (2.5-4.5) mg/dL Troponin I (0.000-0.034) ng/mL Total Protein (6.3-8.2) g/dL Triglycerides (<150) mg/dL Cholesterol (<200) mg/dL LDL Cholesterol, Calc (0-99) mg/dL 04/17/20 04/17/20 04/17/20 Range/Units 03:57 04:30 04:30 WBC 12.8 H (3.8-10.6) k/uL Neutrophils # 10.7 H (1.3-7.7) k/uL Lymphocytes # 0.8 L (1.0-4.8) k/uL APTT (22.0-30.0) sec Chloride 110 H (98-107) mmol/L Carbon Dioxide 21 L (22-30) mmol/L BUN 34 H (9-20) mg/dL Glucose 212 H (74-99) mg/dL POC Glucose (mg/dL) 251 H (75-99) mg/dL Phosphorus 1.8 L (2.5-4.5) mg/dL Troponin I (0.000-0.034) ng/mL Total Protein 5.8 L (6.3-8.2) g/dL Triglycerides 203 H (<150) mg/dL Cholesterol 245 H (<200) mg/dL LDL Cholesterol, Calc 156 H (0-99) mg/dL 04/17/20 04/17/20 04/17/20 Range/Units 04:58 05:50 08:20 WBC (3.8-10.6) k/uL Neutrophils # (1.3-7.7) k/uL Lymphocytes # (1.0-4.8) k/uL APTT 31.8 H (22.0-30.0) sec Chloride (98-107) mmol/L Carbon Dioxide (22-30) mmol/L BUN (9-20) mg/dL Glucose (74-99) mg/dL POC Glucose (mg/dL) 236 H 232 H (75-99) mg/dL Phosphorus (2.5-4.5) mg/dL Troponin I (0.000-0.034) ng/mL Total Protein (6.3-8.2) g/dL Triglycerides (<150) mg/dL Cholesterol (<200) mg/dL LDL Cholesterol, Calc (0-99) mg/dL 04/17/20 04/17/20 04/17/20 Range/Units 08:20 11:50 12:28 WBC (3.8-10.6) k/uL Neutrophils # (1.3-7.7) k/uL Lymphocytes # (1.0-4.8) k/uL APTT (22.0-30.0) sec Chloride (98-107) mmol/L Carbon Dioxide 19 L (22-30) mmol/L BUN 25 H (9-20) mg/dL Glucose 360 H (74-99) mg/dL POC Glucose (mg/dL) 356 H (75-99) mg/dL Phosphorus 2.3 L (2.5-4.5) mg/dL Troponin I 0.505 H* (0.000-0.034) ng/mL Total Protein (6.3-8.2) g/dL Triglycerides (<150) mg/dL Cholesterol (<200) mg/dL LDL Cholesterol, Calc (0-99) mg/dL 04/17/20 04/17/20 04/17/20 Range/Units 16:44 17:24 20:55 WBC (3.8-10.6) k/uL Neutrophils # (1.3-7.7) k/uL Lymphocytes # (1.0-4.8) k/uL APTT 61.0 H (22.0-30.0) sec Chloride (98-107) mmol/L Carbon Dioxide (22-30) mmol/L BUN (9-20) mg/dL Glucose (74-99) mg/dL POC Glucose (mg/dL) 345 H 401 H (75-99) mg/dL Phosphorus (2.5-4.5) mg/dL Troponin I (0.000-0.034) ng/mL Total Protein (6.3-8.2) g/dL Triglycerides (<150) mg/dL Cholesterol (<200) mg/dL LDL Cholesterol, Calc (0-99) mg/dL Assessment and Plan (1) Alcohol withdrawal Current Visit: Yes Status: Acute Code(s): F10.239 - ALCOHOL DEPENDENCE WITH WITHDRAWAL, UNSPECIFIED SNOMED Code(s): 649349951 (2) Hypertension Current Visit: Yes Status: Acute Code(s): I10 - ESSENTIAL (PRIMARY) HYPERTENSION SNOMED Code(s): 82598670 (3) Elevated troponin Current Visit: Yes Status: Acute Code(s): R79.89 - OTHER SPECIFIED ABNORMAL FINDINGS OF BLOOD CHEMISTRY SNOMED Code(s): 822707447 (4) Diabetic ketoacidosis Current Visit: Yes Status: Acute Code(s): E11.10 - TYPE 2 DIABETES MELLITUS WITH KETOACIDOSIS WITHOUT COMA SNOMED Code(s): 383989984 (5) Coronary artery disease Current Visit: Yes Status: Acute Code(s): I25.10 - ATHSCL HEART DISEASE OF [place] CORONARY ARTERY W/O ANG PCTRS SNOMED Code(s): 29703436 Plan: Transition to levemir, continue IV heparin, accucheck, sliding scale. Cardiology following and continue lopressor, entresto, lipitor, imdur. [facility] protocol
[2020-04-17] MEDS: ATORVASTATIN 40 MG TAB PO SCH (21:26)
[2020-04-18 02:05] LABS: Glucose,Whole Blood 269 mg/dL (75-99)
[2020-04-18 05:16] LABS: Basophils % (A) 0 %; Eosinophils # (A) 0.1 k/uL (0-0.7); Eosinophils % (A) 1 %; HCT 44.7 % (39.0-53.0); HGB 14.8 gm/dL (13.0-17.5); Lymphocytes % (A) 13 %; MCH 31.1 pg (25.0-35.0); Monocytes # (A) 0.6 k/uL (0-1.0); Monocytes % (A) 8 %; Neutrophils # (A) 5.8 k/uL (1.3-7.7); Neutrophils % (A) 77 %; Platelet Count 203 k/uL (150-450); RBC 4.76 m/uL (4.30-5.90); RDW 12.7 % (11.5-15.5); WBC 7.6 k/uL (3.8-10.6)
[2020-04-18 05:35] LABS: African American GFR (CKD) >90 (>60 ml/min/1.73 sqM); Anion Gap 10 mmol/L; Blood Urea Nitrogen 18 mg/dL (9-20); Calcium 8.7 mg/dL (8.4-10.2); Carbon Dioxide 25 mmol/L (22-30); Chloride 100 mmol/L (98-107); Glucose 293 mg/dL (74-99); Non-African American GFR(CKD) >90 (>60 ml/min/1.73 sqM); Phosphorus 2.5 mg/dL (2.5-4.5); Potassium 3.5 mmol/L (3.5-5.1); Sodium 135 mmol/L (137-145)
[2020-04-18] MEDS: HEPARIN SODIUM,PORCINE 5,000 UNIT/ML 1 ML VIAL IV PRN (05:48)
[2020-04-18] MEDS ORDERED: INSULIN DETEMIR (LEVEMIR) 100 UNIT/ML SYR SQ SCH ×3 (07:00→09:15)
[2020-04-18 07:05] LABS: Glucose,Whole Blood 318 mg/dL (75-99)
[2020-04-18] MEDS: INSULIN ASPART (NovoLOG) 100 UNIT/ML VIAL SQ SCH ×4 (07:08→20:42)
[2020-04-18] MEDS: PANTOPRAZOLE 40 MG/10 ML VIAL IV SCH (09:02)
[2020-04-18] MEDS: CLOPIDOGREL 75 MG TAB PO SCH (09:03)
[2020-04-18] MEDS: THIAMINE 100 MG TAB PO SCH ×2 (09:03→17:59)
[2020-04-18] MEDS: ISOSORBIDE MONONITRATE ER 30 MG TAB.ER.24H PO SCH (09:03)
[2020-04-18] MEDS: ASPIRIN 81 MG PO SCH (09:03)
[2020-04-18] MEDS: METOPROLOL TARTRATE 50 MG TAB PO SCH ×2 (09:03→20:41)
[2020-04-18] MEDS: SACUBITRIL/VALSARTAN 49 MG-51 MG TABLET PO SCH ×2 (09:04→21:25)
[2020-04-18] MEDS: RANOLAZINE 500 MG TAB.ER.12H PO SCH ×2 (09:04→21:25)
--- NOTE | 2020-04-18 09:27 | PN ---
PROGRESS NOTE Mr. Gonzalez is a 65-year-old male with history of diabetes who presented to the hospital with change in mental status, was found to have a DKA with mild troponin elevation. Patient has a known history of coronary artery disease, history of percutaneous revascularization, has been followed by Dr. Morse in the past. According to him, the last time he saw him was about a year ago. He is not sure when was the last time he had a stent, but he is definitely more awake and alert today. He had a prior history of coronary artery bypass grafting, history of peripheral vascular disease. He had an echocardiogram done yesterday that revealed a preserved ventricular size and systolic function with mild mitral and tricuspid regurgitation. He continues to be at this time on aspirin once a day, Lipitor 40 mg daily, Plavix 75 mg daily, IV heparin, isosorbide mononitrate 30 mg daily, metoprolol tartrate 50 mg twice a day, Ranexa 500 mg twice a day and Entresto 24-26 mg twice a day. PHYSICAL EXAMINATION: Blood pressure running in the 160s with a heart rate in the 60s. LUNGS: Clear, regular rate and rhythm, S1, S2. No S3 with systolic ejection murmur 2/6 heard at the base. No diastolic murmur, no rub. ABDOMEN: Soft, nontender. EXTREMITIES: No significant edema. LAB DATA: Revealed BUN and creatinine of 18 and 0.81, potassium 3.5, hemoglobin 14.8. IMPRESSION: 1. DKA, resolving. 2. Mild troponin elevation. No evidence to suggest acute coronary artery syndrome, most likely related to his DKA. 3. History of alcoholism. 4. History of coronary artery disease, status post coronary artery bypass grafting. 5. Acute pancreatitis. 6. History of chronic obstructive pulmonary disease. 7. Peripheral vascular disease. 8. Hypertension. 9. Hyperlipidemia. RECOMMENDATION: I will try to obtain the prior workup from Dr. Hammond's office. From the cardiac standpoint I will stop his heparin, I will increase the dose of the Entresto and depending on his progress, further recommendation will be made. MMODL / IJN: [id number] /
[2020-04-18 12:11] LABS: Glucose,Whole Blood 285 mg/dL (75-99)
--- NOTE | 2020-04-18 13:31 | P.PN ---
Subjective Progress Note Date: 04/18/20 Principal diagnosis: Acute DKA This is a 65-year-old white male with history of multiple medical problems including alcohol abuse, type 1 diabetes, coronary artery disease and previous CABG, fibromyalgia, hypertension, obstructive sleep apnea syndrome, peripheral vessel occlusive disease, peripheral neuropathy, multiple vascular procedures for bilateral lower extremities peripheral vessel occlusive disease, patient presented to the ER mostly with 1 day history of vomiting, fatigue, weakness. According to friend, patient had poor intake except alcohol for the last 3-4 weeks, and has been gradually feeling generally weak. Patient has not been compliant with his insulin. And upon presentation to the ER. Patient was noted to have significantly elevated blood sugar, positive ketones, elevated pancreatic enzymes, his blood sugar was as high as 716. And malaise of 2632 lipase of 2076, patient was admitted with the impression of acute diabetic ketoacidosis, placed on the protocol, and I was asked to see him on consultation today. This morning, the patient is off insulin, he is on room air, his IV fluid is D5 45 at 100 mL per hour. And he is already on the sliding scale coverage. I have placed the patient on Levemir insulin 10 units subcu at night, patient is to be seen by cardiology for elevated troponin, and he remains on the alcohol withdrawal protocol. Patient is on heparin for elevated troponin. After seen by cardiology. Patient was placed on Lipitor Plavix and aspirin, and recommended that heparin continuous for 24 hours. Although his mild troponin elevation was felt to be most likely related to diabetic ketoacidosis presentation. Not much history could be obtained from the patient, patient was given Ativan earlier and he is on CIWA protocol. Patient was reevaluated today on 04/18/2020, remains in the ICU as an overflow, he is now on subcutaneous insulin, remains intermittently lethargic, oriented 2, and he remains on the CIWA protocol for alcohol withdrawal. Labs were noted to be basically normal. His anion gap is closed. And it remains closed. His CBC is relatively normal. I plan to transfer the patient today to a monitored bed, could be remote telemetry if available. Objective - Vital Signs Vital signs: Vital Signs Temp 98.2 F 04/18/20 08:00 Pulse 74 04/18/20 08:00 Resp 16 04/18/20 08:00 BP 175/87 04/18/20 08:00 Pulse Ox 95 04/18/20 08:00 Intake & Output 04/17/20 04/18/20 04/18/20 18:59 06:59 18:59 Intake Total 235.559 185.95 Output Total 1100 1250 Balance -864.441 -1064.05 Weight 93.5 kg 93.8 kg Intake: Intake, IV Titration 235.559 185.95 Amount Heparin Sod,Pork in 0.45% 235.559 185.95 NaCl 25,000 unit In 0.45 % NaCl 1 250ml.bag @ 12 UNITS/KG/HR 9.798 mls/hr IV .Q24H [facility] Rx#: [id number] Output: Urine 1100 1250 Other: Voiding Method Indwelling Catheter Indwelling Catheter Indwelling Catheter # Bowel Movements 1 - Exam Physical Exam: Revealed a 65-year-old white male, more arousable today, and follows simple instructions. Head: Atraumatic, normocephalic. HEENT:[Neck is supple.] [No neck masses.] [No thyromegaly.] [No JVD.] EOMI, no icterus, Chest: [Clear throughout, no crackles, no rhonchi, no wheezes.] Cardiac Exam: [Normal S1 and S2, no S3 gallop, no murmur.] Abdomen: [Soft, nontender, no megaly, no rebound, no guarding, normal bowel sounds.] Extremities: [No clubbing, no edema, no cyanosis.] Neurological Exam: Alert, oriented 2, no gross focal neurologic deficits.. Psychiatric: Patient has a depressed mood, blunt affect. Oriented 2. Mostly [address] and person. - Labs CBC & Chem 7: 04/18/20 05:03 04/18/20 05:03 Labs: Abnormal Lab Results - Last 24 Hours (Table) 04/17/20 04/17/20 04/17/20 Range/Units 16:44 17:24 20:55 APTT 61.0 H (22.0-30.0) sec Sodium (137-145) mmol/L Glucose (74-99) mg/dL POC Glucose (mg/dL) 345 H 401 H (75-99) mg/dL 04/18/20 04/18/20 04/18/20 Range/Units 02:03 05:03 05:03 APTT 38.9 H (22.0-30.0) sec Sodium 135 L (137-145) mmol/L Glucose 293 H (74-99) mg/dL POC Glucose (mg/dL) 269 H (75-99) mg/dL 04/18/20 04/18/20 Range/Units 07:03 12:10 APTT (22.0-30.0) sec Sodium (137-145) mmol/L Glucose (74-99) mg/dL POC Glucose (mg/dL) 318 H 285 H (75-99) mg/dL Assessment and Plan Assessment: Impression: Diabetic ketoacidosis Elevated troponin, possible non-ST elevation myocardial infarction, however seen by cardiology, and felt the troponin is nonspecific. Acute pancreatitis. History of coronary artery disease and previous CABG. History of underlying COPD, presently stable. Insulin-dependent diabetes mellitus. Obstructive sleep apnea syndrome. Severe peripheral vessel occlusive disease. alcohol dependence. History of fibromyalgia. Recommendation: Continue present supportive care measures. Transfer patient out of the ICU. Continue subcu insulin and Levemir insulin. Continue CIWA protocol. Will continue to follow. Time with Patient: Less than 30
--- NOTE | 2020-04-18 16:22 | P.CONS ---
History of Present Illness - Chief Complaint Medical debility - History of Present Illness I had the opportunity see patient for inpatient rehab consultation with regard to medical debility. He was admitted to [facility] April 26 with generalized weakness at perhaps 3 or 4 days' duration as well as decreased appetite. Admitted with diagnosis of DKA in the non-STEMI. Note elevated troponin. Seen in consultation by Dr. Denson. Chest x-ray demonstrates cardiomegaly and small right pleural effusion. PT reports two-person maximal total assistance for bed mobility. OT reports total assistance for upper dressing and two-person total assistance for lower dressing, bathing, toileting and functional mobility and transfers. Previous functional history as elicited from patient: 65-year-old right-handed white male is lives in alone. Retired. Describes independent with own cooking, laundry, driving, standing shower and gait without device. PMD Dr. martinez although he lives in [place] and has 5 home there. Denies tobacco or alcohol. Family history both parents with cancer. Review of Systems Review of systems: ENT: Denies sneezes or discharge. Eyes: Denies discharge or photophobia. Cardiac: Denies chest pain or palpitation. Pulmonary: Denies cough or shortness of breath. Gastrointestinal: Denies nausea, emesis, constipation, diarrhea. Genitourinary: Denies discharge or frequency. Musculoskeletal: Denies muscle or bone aches. Neurologic: Generalized weakness. Endocrine: Denies shakes or sweats. Oncology: Denies cancers. Dermatologic: Denies rash, itching, pruritus. ALLERGY/immunology: Denies sneezes, rashes. Past Medical History Past Medical History: Coronary Artery Disease (CAD), Heart Failure, COPD, Diabetes Mellitus, Fibromyalgia, GERD/Reflux, GI Bleed, Hyperlipidemia, Hypertension, Myocardial Infarction (CO), Sleep Apnea/CPAP/BIPAP, Vascular Disorder Additional Past Medical History / Comment(s): RECTAL BLEEDING. BRIUSES EASILY. NO TX FOR SLEEP APNEA. NEUROPATHY FEET. Last Myocardial Infarction Date:: History of Any Multi-Drug Resistant Organisms: None Reported Past Surgical History: Coronary Bypass/CABG, Heart Catheterization With Stent Additional Past Surgical History / Comment(s): HEART STENTS X12. TRIPLE CABG. RT LEG VASCULAR SURG X5, LT LEG VASCULAR SURG X3. MYRTLE EYE SURG. COLONOSCOPY. Past Anesthesia/Blood Transfusion Reactions: No Reported Reaction Date of Last Stent Placement:: 07/2018 Past Psychological History: No Psychological Hx Reported Smoking Status: Former smoker Past Alcohol Use History: Daily Additional Past Alcohol Use History / Comment(s): SMOKED 20 YEARS, 1 1/2 PPD, QUIT 1998. FIFTH LIQUOR PER WEEK. Past Drug Use History: None Reported - Past Family History Mother Family Medical History: Cancer Medications and Allergies Home Medications Medication Instructions Recorded Confirmed Type Acetaminophen [Tylenol Extra 500 - 1,000 mg PO DAILY PRN 01/22/19 04/17/20 History Strength] Cetirizine HCl [Zyrtec] 10 mg PO DAILY 01/22/19 04/17/20 History Clopidogrel [Plavix] 75 mg PO DAILY 01/22/19 04/17/20 History Ergocalciferol [Vitamin D2] 50,000 unit PO Q7D 01/22/19 04/17/20 History Furosemide [Lasix] 40 mg PO DAILY 01/22/19 04/17/20 History HYDROcodone/APAP 10-325MG [[place] 1 tab PO QID PRN 01/22/19 04/17/20 History 10-325] Insulin NPL/Insulin Lispro 70 unit SQ HS 01/22/19 04/17/20 History [humaLOG MIX 75-25 VIAL] Insulin NPL/Insulin Lispro 90 unit SQ AC-BRKFST 01/22/19 04/17/20 History [humaLOG MIX 75-25 VIAL] Isosorbide Mononitrate [Isosorbide 30 mg PO DAILY 01/22/19 04/17/20 History Mononitrate ER] Metoprolol Tartrate [Lopressor] 50 mg PO BID 01/22/19 04/17/20 History Omeprazole 20 mg PO DAILY 01/22/19 04/17/20 History Potassium Chloride ER [K-Dur 10] 20 meq PO DAILY 01/22/19 04/17/20 History Pregabalin [Lyrica] 150 mg PO TID 01/22/19 04/17/20 History Ranolazine [Ranexa] 500 mg PO BID 01/22/19 04/17/20 History Sacubitril/Valsartan [Entresto 49 1 tab PO DAILY 01/22/19 04/17/20 History mg-51 mg Tablet] Aspirin EC [Ecotrin Low Dose] 81 mg PO DAILY 04/16/20 04/17/20 History Atorvastatin [Lipitor] 40 mg PO HS 04/16/20 04/17/20 History Multivitamins, Thera [Multivitamin 1 tab PO DAILY 04/17/20 04/17/20 History (formulary)] Allergies Allergy/AdvReac Type Severity Reaction Status Date / Time albiglutide [From Tanzeum] Allergy Diarrhea Verified 04/16/20 14:39 duloxetine HCl Allergy Swelling Verified 04/16/20 14:39 [From Cymbalta] Physical Exam Vitals: Vital Signs Temp Pulse Resp BP Pulse Ox 04/18/20 12:00 98 F 77 22 123/72 98 04/18/20 08:00 98.2 F 74 16 175/87 95 04/18/20 04:00 82 17 165/107 04/18/20 03:00 98.0 F 85 10 L 165/107 96 04/18/20 02:00 71 12 04/18/20 01:00 68 18 04/18/20 00:00 79 14 162/80 04/17/20 23:00 73 12 195/103 04/17/20 22:40 85 12 04/17/20 22:00 98.6 F 99 10 L 174/86 95 04/17/20 21:00 102 H 21 04/17/20 20:00 101 H 18 04/17/20 19:00 96 19 04/17/20 18:00 96 24 160/95 96 Intake and Output 04/18/20 04/18/20 04/18/20 06:59 14:59 22:59 Intake Total 185.95 80 Output Total 1250 650 Balance -1064.05 -570 Intake: IV 80 0.9 80 Intake, IV Titration 185.95 Amount Heparin Sod,Pork in 0.45% 185.95 NaCl 25,000 unit In 0.45 % NaCl 1 250ml.bag @ 12 UNITS/KG/HR 9.798 mls/hr IV .Q24H [facility] Rx#: [id number] Output: Urine 1250 650 Other: Voiding Method Indwelling Catheter Indwelling Catheter # Bowel Movements 1 Weight 93.8 kg Skin: Good color, texture, turgor. General: Medium build and comfortable appearance. Head: Normocephalic, atraumatic. Eyes: Symmetric. Pupils equal round. Ears: Symmetric. Hearing within normal limits. Mouth: Clear. Neck: Supple. Carotid without bruit. Cardiac: Regular rate and rhythm. Lungs: Clear anteriorly and posteriorly. Abdomen: Soft active nontender. Extremities: Normal tone. Neurological: Mental status: Cooperative but at least semi-confused historian. Cranial nerves: Symmetric facial tone and trapezius. Motor: Less than antigravity movement arms and poor movement at best legs. Sensation: Intact throughout. DTRs: Symmetric and equal throughout. Mobility: Requires physical assistance for bed mobility. Results CBC & Chem 7: 04/18/20 05:03 04/18/20 05:03 Labs: Abnormal Lab Results - Last 24 Hours (Table) 04/17/20 04/17/20 04/17/20 Range/Units 16:44 17:24 20:55 APTT 61.0 H (22.0-30.0) sec Sodium (137-145) mmol/L Glucose (74-99) mg/dL POC Glucose (mg/dL) 345 H 401 H (75-99) mg/dL 04/18/20 04/18/20 04/18/20 Range/Units 02:03 05:03 05:03 APTT 38.9 H (22.0-30.0) sec Sodium 135 L (137-145) mmol/L Glucose 293 H (74-99) mg/dL POC Glucose (mg/dL) 269 H (75-99) mg/dL 04/18/20 04/18/20 Range/Units 07:03 12:10 APTT (22.0-30.0) sec Sodium (137-145) mmol/L Glucose (74-99) mg/dL POC Glucose (mg/dL) 318 H 285 H (75-99) mg/dL Assessment and Plan (1) Alcohol withdrawal Current Visit: Yes Status: Acute Code(s): F10.239 - ALCOHOL DEPENDENCE WITH WITHDRAWAL, UNSPECIFIED SNOMED Code(s): 250187795 (2) Diabetic ketoacidosis Current Visit: Yes Status: Acute Code(s): E11.10 - TYPE 2 DIABETES MELLITUS WITH KETOACIDOSIS WITHOUT COMA SNOMED Code(s): 545496151 (3) Elevated troponin Current Visit: Yes Status: Acute Code(s): R79.89 - OTHER SPECIFIED ABNORMAL FINDINGS OF BLOOD CHEMISTRY SNOMED Code(s): 826197907 Plan: Impression: 1. Medical debility. 2. DKA. 3. Non-STEMI with history coronary artery disease and CO. 4. Hypertension. 5. COPD. 6. Sleep apnea. 7. CHF. 8. COPD. 9. Fibromyalgia. Comments and plan: At this time PT and OT are ongoing. Patient currently two- person assist, 31/03. Rehab progress currently guarded. We'll add speech therapy for communication cognition evaluation.
[2020-04-18 17:00] LABS: Glucose,Whole Blood 300 mg/dL (75-99)
[2020-04-18] MEDS ORDERED: INSULIN ASPART (NovoLOG) 100 UNIT/ML VIAL SQ ONE (17:49)
[2020-04-18] MEDS: MORPHINE SULFATE 4 MG/ML SYRINGE IVP PRN (18:16)
[2020-04-18 20:39] LABS: Glucose,Whole Blood 310 mg/dL (75-99)
[2020-04-18] MEDS: ATORVASTATIN 40 MG TAB PO SCH (20:42)
--- NOTE | 2020-04-18 21:50 | P.PN ---
Subjective Progress Note Date: 04/18/20 Principal diagnosis: DKA Pt improved today, remains hyperglycemic on subcutaneous insulin. Heparin stopped per cardiology and entresto dose increased. Pt evaluated by PMR today for possible IPR placement. Objective - Vital Signs Vital signs: Vital Signs Temp 98.5 F 04/18/20 16:00 Pulse 80 04/18/20 16:00 Resp 18 04/18/20 16:00 BP 140/88 04/18/20 16:00 Pulse Ox 97 04/18/20 16:00 Intake & Output 04/18/20 04/18/20 04/19/20 06:59 18:59 06:59 Intake Total 185.95 880 Output Total 1250 1200 Balance -1064.05 -320 Weight 93.8 kg Intake: IV 80 0.9 80 Intake, IV Titration 185.95 Amount Heparin Sod,Pork in 0.45% 185.95 NaCl 25,000 unit In 0.45 % NaCl 1 250ml.bag @ 12 UNITS/KG/HR 9.798 mls/hr IV .Q24H [facility] Rx#: [id number] Oral 800 Output: Urine 1250 1200 Other: Voiding Method Indwelling Catheter Indwelling Catheter Indwelling Catheter # Bowel Movements 1 - Exam Gen: well nourished male in NAD HEENT: normocephalic, mucus membranes moist CV: RRR, no murmur Lungs: Normal effort, clear throughout Neuro: alert. No focal deficits - Labs CBC & Chem 7: 04/18/20 05:03 04/18/20 05:03 Labs: Abnormal Lab Results - Last 24 Hours (Table) 04/18/20 04/18/20 04/18/20 Range/Units 02:03 05:03 05:03 APTT 38.9 H (22.0-30.0) sec Sodium 135 L (137-145) mmol/L Glucose 293 H (74-99) mg/dL POC Glucose (mg/dL) 269 H (75-99) mg/dL 04/18/20 04/18/20 04/18/20 Range/Units 07:03 12:10 16:59 APTT (22.0-30.0) sec Sodium (137-145) mmol/L Glucose (74-99) mg/dL POC Glucose (mg/dL) 318 H 285 H 300 H (75-99) mg/dL 04/18/20 Range/Units 20:37 APTT (22.0-30.0) sec Sodium (137-145) mmol/L Glucose (74-99) mg/dL POC Glucose (mg/dL) 310 H (75-99) mg/dL Assessment and Plan (1) Alcohol withdrawal Current Visit: Yes Status: Acute Code(s): F10.239 - ALCOHOL DEPENDENCE WITH WITHDRAWAL, UNSPECIFIED SNOMED Code(s): 006695333 (2) Hypertension Current Visit: Yes Status: Acute Code(s): I10 - ESSENTIAL (PRIMARY) HYPERTENSION SNOMED Code(s): 59077882 (3) Elevated troponin Current Visit: Yes Status: Acute Code(s): R79.89 - OTHER SPECIFIED ABNORMAL FINDINGS OF BLOOD CHEMISTRY SNOMED Code(s): 034038020 (4) Diabetic ketoacidosis Current Visit: Yes Status: Acute Code(s): E11.10 - TYPE 2 DIABETES MELLITUS WITH KETOACIDOSIS WITHOUT COMA SNOMED Code(s): 797296839 (5) Coronary artery disease Current Visit: Yes Status: Acute Code(s): I25.10 - ATHSCL HEART DISEASE OF [place] CORONARY ARTERY W/O ANG PCTRS SNOMED Code(s): 41843863 Plan: Increase levemir, continue with accucheck, sliding scale insulin. Cardiology following, heparin discontinued; entresto increased. Continue lopressor, lipitor, imdur. NIWA protocol. PT/OT.
[2020-04-19] MEDS ORDERED: INSULIN DETEMIR (LEVEMIR) 100 UNIT/ML SYR SQ SCH (07:00)
[2020-04-19 07:05] LABS: Glucose,Whole Blood 224 mg/dL (75-99)
[2020-04-19] MEDS: INSULIN ASPART (NovoLOG) 100 UNIT/ML VIAL SQ SCH ×7 (08:08→20:50)
[2020-04-19] MEDS: CLOPIDOGREL 75 MG TAB PO SCH (08:09)
[2020-04-19] MEDS: ISOSORBIDE MONONITRATE ER 30 MG TAB.ER.24H PO SCH (08:09)
[2020-04-19] MEDS: THIAMINE 100 MG TAB PO SCH ×2 (08:09→17:30)
[2020-04-19] MEDS: METOPROLOL TARTRATE 50 MG TAB PO SCH ×2 (08:09→20:49)
[2020-04-19] MEDS: ASPIRIN 81 MG PO SCH (08:09)
[2020-04-19] MEDS: PANTOPRAZOLE 40 MG/10 ML VIAL IV SCH (08:09)
[2020-04-19 08:46] LABS: Basophils % (A) 0 %; Eosinophils # (A) 0.1 k/uL (0-0.7); Eosinophils % (A) 1 %; HCT 45.3 % (39.0-53.0); HGB 14.7 gm/dL (13.0-17.5); Lymphocytes # (A) 0.9 k/uL (1.0-4.8); Lymphocytes % (A) 14 %; MCH 30.5 pg (25.0-35.0); MCHC 32.6 g/dL (31.0-37.0); MCV 93.6 fL (80.0-100.0); Mean Platelet Volume 7.8; Monocytes # (A) 0.5 k/uL (0-1.0); Monocytes % (A) 7 %; Neutrophils # (A) 5.1 k/uL (1.3-7.7); Neutrophils % (A) 77 %; Platelet Count 185 k/uL (150-450); RBC 4.84 m/uL (4.30-5.90); RDW 12.7 % (11.5-15.5); WBC 6.6 k/uL (3.8-10.6)
[2020-04-19 09:14] LABS: African American GFR (CKD) >90 (>60 ml/min/1.73 sqM); Anion Gap 7 mmol/L; Blood Urea Nitrogen 20 mg/dL (9-20); Calcium 8.4 mg/dL (8.4-10.2); Carbon Dioxide 28 mmol/L (22-30); Chloride 100 mmol/L (98-107); Glucose 221 mg/dL (74-99); Non-African American GFR(CKD) >90 (>60 ml/min/1.73 sqM); Potassium 3.4 mmol/L (3.5-5.1); Sodium 135 mmol/L (137-145)
[2020-04-19] MEDS: SACUBITRIL/VALSARTAN 49 MG-51 MG TABLET PO SCH ×2 (09:16→20:49)
[2020-04-19] MEDS: RANOLAZINE 500 MG TAB.ER.12H PO SCH ×2 (09:16→20:49)
[2020-04-19] MEDS: MORPHINE SULFATE 4 MG/ML SYRINGE IVP PRN ×2 (09:17→17:41)
[2020-04-19 11:52] LABS: Glucose,Whole Blood 466 mg/dL (75-99)
--- NOTE | 2020-04-19 14:53 | P.PN ---
Subjective This is a pleasant 65-year-old male past medical history significant for coronary artery disease status post bypass grafting, peripheral vascular di sease, hypertension, dyslipidemia, mixed diastolic and systolic heart failure most recent heart cath was done in June 2019 which was a staged PCI to the LAD. His diagnostic cath done shortly before that revealed LV function of approximately 70%, left main had a distal lesion of 70%, LAD had a mid lesion 100% occluded, circumflex ostial 70% circumflex, RCA 100% proximal lesion, 60% stenosis of the PDA beyond the anastomosis ecchymosis of the SVG to RCA, HARPER to LAD with mild disease, SVG to OM was patent. and diabetes mellitus. He follows with Dr. Dejesus. He is seen and examined resting comfortably lying flat in bed in no acute distress. He denies symptoms of chest pain, shortness of breath, dizziness or palpitations. Blood pressure 131/72 heart rate 93 afebrile maintaining oxygen saturation on room air. Laboratory data reviewed, CBC unremarkable, sodium 135, potassium 3.4 and creatinine 0.71. Currently maintained on aspirin 81 mg daily, Plavix 75 mg daily, atorvastatin 40 mg daily, Imdur 30 mg daily, metoprolol 50 mg twice a day, Ranexa 500 mg twice a day and entresto 49/51 mg twice a day. GENERAL: Well-appearing, well-nourished and in no acute distress. NECK: Supple without JVD or thyromegaly. LUNGS: Faint expiratory wheeze at the left base. Respirations equal and unlabored. No rales or rhonchi. HEART: Regular rate and rhythm with systolic ejection murmur at the base, no rubs or gallops. S1 and S2 heard. EXTREMITIES: Normal range of motion, no edema. No clubbing or cyanosis. Peripheral pulses intact. ASSESSMENT DKA, resolving Mild troponin elevation no evidence to suggest an acute coronary syndrome likely related to DKA History of alcohol abuse with active withdrawals History of coronary artery disease status post bypass grafting with recent PCI to the LAD June 2019 Hypertension Dyslipidemia Peripheral vascular disease PLAN Continue current medical regimen. Stable from a cardiac perspective. Follow up with his ware carrier upon discharge. We will follow along as needed. Nurse Practitioner note has been reviewed, I agree with a documented findings and plan of care. Patient was seen and examined. Objective - Vital Signs Vital signs: Vital Signs Temp 97.4 F L 08/12/20 11:59 Pulse 93 04/19/20 11:59 Resp 16 04/19/20 11:59 BP 131/72 04/19/20 11:59 Pulse Ox 95 04/19/20 11:59 Intake & Output 04/18/20 04/19/20 04/19/20 18:59 06:59 18:59 Intake Total 880 Output Total 1200 600 Balance -320 -600 Intake: IV 80 0.9 80 Oral 800 Output: Urine 1200 600 Other: Voiding Method Indwelling Catheter Indwelling Catheter Indwelling Catheter - Labs CBC & Chem 7: 04/19/20 07:40 04/19/20 07:40 Labs: Abnormal Lab Results - Last 24 Hours (Table) 04/18/20 04/18/20 04/19/20 Range/Units 16:59 20:37 06:59 Lymphocytes # (1.0-4.8) k/uL Sodium (137-145) mmol/L Potassium (3.5-5.1) mmol/L Glucose (74-99) mg/dL POC Glucose (mg/dL) 300 H 310 H 224 H (75-99) mg/dL 04/19/20 04/19/20 04/19/20 Range/Units 07:40 07:40 11:44 Lymphocytes # 0.9 L (1.0-4.8) k/uL Sodium 135 L (137-145) mmol/L Potassium 3.4 L (3.5-5.1) mmol/L Glucose 221 H (74-99) mg/dL POC Glucose (mg/dL) 466 H (75-99) mg/dL
[2020-04-19 15:14] LABS: Glucose,Whole Blood 352 mg/dL (75-99)
[2020-04-19 16:46] LABS: Glucose,Whole Blood 221 mg/dL (75-99)
[2020-04-19] MEDS: METOCLOPRAMIDE 5 MG/ML 2 ML VIAL IVP PRN (17:42)
[2020-04-19 19:53] VITALS: RESP 18
[2020-04-19 20:08] LABS: Glucose,Whole Blood 287 mg/dL (75-99)
[2020-04-19] MEDS: ATORVASTATIN 40 MG TAB PO SCH (20:49)
--- NOTE | 2020-04-19 21:16 | P.PN ---
Subjective Progress Note Date: 04/19/20 He continues to improve, no longer having any chest pain and appetite is back to normal. He is still feeling weak and PT/OT recommending IPR. Pt is agreeable. Objective - Vital Signs Vital signs: Vital Signs Temp 97.5 F L 04/19/20 19:52 Pulse 81 04/19/20 19:52 Resp 18 04/19/20 19:52 BP 100/60 04/19/20 19:52 Pulse Ox 93 L 04/19/20 19:52 Intake & Output 04/19/20 04/19/20 04/20/20 06:59 18:59 06:59 Intake Total 580 Output Total 600 Balance -600 580 Intake: Oral 580 Output: Urine 600 Other: Voiding Method Indwelling Catheter Urinal - Exam Gen: well nourished male in NAD HEENT: normocephalic, mucus membranes moist CV: RRR, no murmur Lungs: Normal effort, clear throughout Neuro: alert and oriented x3. No focal deficits - Labs CBC & Chem 7: 04/19/20 07:40 04/19/20 07:40 Labs: Abnormal Lab Results - Last 24 Hours (Table) 04/19/20 04/19/20 04/19/20 Range/Units 06:59 07:40 07:40 Lymphocytes # 0.9 L (1.0-4.8) k/uL Sodium 135 L (137-145) mmol/L Potassium 3.4 L (3.5-5.1) mmol/L Glucose 221 H (74-99) mg/dL POC Glucose (mg/dL) 224 H (75-99) mg/dL 04/19/20 04/19/20 04/19/20 Range/Units 11:44 15:03 16:42 Lymphocytes # (1.0-4.8) k/uL Sodium (137-145) mmol/L Potassium (3.5-5.1) mmol/L Glucose (74-99) mg/dL POC Glucose (mg/dL) 466 H 352 H 221 H (75-99) mg/dL 04/19/20 Range/Units 19:53 Lymphocytes # (1.0-4.8) k/uL Sodium (137-145) mmol/L Potassium (3.5-5.1) mmol/L Glucose (74-99) mg/dL POC Glucose (mg/dL) 287 H (75-99) mg/dL Assessment and Plan (1) Alcohol withdrawal Current Visit: Yes Status: Acute Code(s): F10.239 - ALCOHOL DEPENDENCE WITH WITHDRAWAL, UNSPECIFIED SNOMED Code(s): 416248297 (2) Hypertension Current Visit: Yes Status: Acute Code(s): I10 - ESSENTIAL (PRIMARY) HYPERTENSION SNOMED Code(s): 10745417 (3) Elevated troponin Current Visit: Yes Status: Acute Code(s): R79.89 - OTHER SPECIFIED ABNORMAL FINDINGS OF BLOOD CHEMISTRY SNOMED Code(s): 829791908 (4) Diabetic ketoacidosis Current Visit: Yes Status: Acute Code(s): E11.10 - TYPE 2 DIABETES MELLITUS WITH KETOACIDOSIS WITHOUT COMA SNOMED Code(s): 088425044 (5) Coronary artery disease Current Visit: Yes Status: Acute Code(s): I25.10 - ATHSCL HEART DISEASE OF [place] CORONARY ARTERY W/O ANG PCTRS SNOMED Code(s): 13559044 Plan: Continue basal and bolus insulin. Cardiology signed off. Continue lopressor, lipitor, imdur. Repeat COVID test and case management working for IPR placement
[2020-04-20 06:57] LABS: Glucose,Whole Blood 262 mg/dL (75-99)
[2020-04-20] MEDS: INSULIN DETEMIR (LEVEMIR) 100 UNIT/ML SYR SQ SCH (08:15)
[2020-04-20] MEDS: ISOSORBIDE MONONITRATE ER 30 MG TAB.ER.24H PO SCH (08:16)
[2020-04-20] MEDS: INSULIN ASPART (NovoLOG) 100 UNIT/ML VIAL SQ SCH ×7 (08:16→20:48)
[2020-04-20] MEDS: CLOPIDOGREL 75 MG TAB PO SCH (08:16)
[2020-04-20] MEDS: THIAMINE 100 MG TAB PO SCH ×2 (08:16→17:33)
[2020-04-20] MEDS: METOPROLOL TARTRATE 50 MG TAB PO SCH ×2 (08:17→20:47)
[2020-04-20] MEDS: RANOLAZINE 500 MG TAB.ER.12H PO SCH ×2 (08:17→20:48)
[2020-04-20] MEDS: ASPIRIN 81 MG PO SCH (08:17)
[2020-04-20] MEDS: SACUBITRIL/VALSARTAN 49 MG-51 MG TABLET PO SCH ×2 (08:17→20:48)
[2020-04-20] MEDS: PANTOPRAZOLE 40 MG TABLET PO SCH (08:17)
[2020-04-20 09:25] LABS: Basophils # (A) 0.1 k/uL (0-0.2); Basophils % (A) 1 %; Eosinophils # (A) 0.1 k/uL (0-0.7); Eosinophils % (A) 1 %; HCT 52.4 % (39.0-53.0); HGB 16.9 gm/dL (13.0-17.5); Lymphocytes # (A) 1.2 k/uL (1.0-4.8); Lymphocytes % (A) 15 %; MCH 30.5 pg (25.0-35.0); MCHC 32.2 g/dL (31.0-37.0); Mean Platelet Volume 8.4; Monocytes # (A) 0.5 k/uL (0-1.0); Monocytes % (A) 7 %; Neutrophils # (A) 5.8 k/uL (1.3-7.7); Neutrophils % (A) 75 %; Platelet Count 225 k/uL (150-450); RBC 5.52 m/uL (4.30-5.90); RDW 12.9 % (11.5-15.5); WBC 7.8 k/uL (3.8-10.6)
[2020-04-20 10:52] VITALS: BMI 33.5
[2020-04-20 11:09] LABS: Glucose,Whole Blood 293 mg/dL (75-99)
[2020-04-20] MEDS: HYDROcodone/APAP 5-325MG 1 EACH TAB PO PRN ×2 (11:30→17:33)
[2020-04-20 17:29] LABS: Glucose,Whole Blood 299 mg/dL (75-99)
[2020-04-20] MEDS: METOCLOPRAMIDE 5 MG/ML 2 ML VIAL IVP PRN (19:10)
[2020-04-20 20:34] LABS: Glucose,Whole Blood 204 mg/dL (75-99)
[2020-04-20] MEDS: ATORVASTATIN 40 MG TAB PO SCH (20:48)
--- NOTE | 2020-04-20 22:52 | P.PN ---
Subjective Progress Note Date: 04/20/20 Principal diagnosis: DKA He denies abdominal pain or nausea today. Glucose under improving control. He is working with PT. BP has been stable Objective - Vital Signs Vital signs: Vital Signs Temp 97.4 F L 04/20/20 20:34 Pulse 85 04/20/20 20:34 Resp 18 04/20/20 20:34 BP 120/57 04/20/20 20:34 Pulse Ox 96 04/20/20 20:34 Intake & Output 04/20/20 04/20/20 04/21/20 06:59 18:59 06:59 Intake Total 200 Output Total 650 Balance -450 Weight 100 kg 100 kg Intake: Oral 200 Output: Urine 650 Other: Voiding Method Urinal Urinal # Voids 2 - Exam Gen: well nourished male in NAD HEENT: normocephalic, mucus membranes moist CV: RRR, no murmur Lungs: Normal effort, clear throughout Neuro: alert and oriented x3. No focal deficits - Labs CBC & Chem 7: 04/20/20 08:28 04/19/20 07:40 Labs: Abnormal Lab Results - Last 24 Hours (Table) 04/20/20 04/20/20 04/20/20 Range/Units 06:54 11:08 17:26 POC Glucose (mg/dL) 262 H 293 H 299 H (75-99) mg/dL 04/20/20 Range/Units 20:33 POC Glucose (mg/dL) 204 H (75-99) mg/dL Assessment and Plan (1) Alcohol withdrawal Current Visit: Yes Status: Acute Code(s): F10.239 - ALCOHOL DEPENDENCE WITH WITHDRAWAL, UNSPECIFIED SNOMED Code(s): 254965407 (2) Hypertension Current Visit: Yes Status: Acute Code(s): I10 - ESSENTIAL (PRIMARY) HYPERTENSION SNOMED Code(s): 74961102 (3) Elevated troponin Current Visit: Yes Status: Acute Code(s): R79.89 - OTHER SPECIFIED ABNORMAL FINDINGS OF BLOOD CHEMISTRY SNOMED Code(s): 723772512 (4) Diabetic ketoacidosis Current Visit: Yes Status: Acute Code(s): E11.10 - TYPE 2 DIABETES MELLITUS WITH KETOACIDOSIS WITHOUT COMA SNOMED Code(s): 009123962 (5) Coronary artery disease Current Visit: Yes Status: Acute Code(s): I25.10 - ATHSCL HEART DISEASE OF [place] CORONARY ARTERY W/O ANG PCTRS SNOMED Code(s): 57931106 Plan: Continue basal and bolus insulin, cont home cardiac meds. He will continue with PT/OT. His insurance denied IPR so will list patient for subacute rehab
[2020-04-21 04:35] VITALS: TEMP 98.3
[2020-04-21] MEDS: HYDROcodone/APAP 5-325MG 1 EACH TAB PO PRN ×2 (05:23→11:57)
[2020-04-21 06:51] LABS: Glucose,Whole Blood 292 mg/dL (75-99)
[2020-04-21] MEDS: INSULIN DETEMIR (LEVEMIR) 100 UNIT/ML SYR SQ SCH (07:52)
[2020-04-21] MEDS: INSULIN ASPART (NovoLOG) 100 UNIT/ML VIAL SQ SCH ×4 (07:52→12:56)
[2020-04-21] MEDS: SACUBITRIL/VALSARTAN 49 MG-51 MG TABLET PO SCH (07:53)
[2020-04-21] MEDS: RANOLAZINE 500 MG TAB.ER.12H PO SCH (07:53)
[2020-04-21] MEDS: METOPROLOL TARTRATE 50 MG TAB PO SCH (07:54)
[2020-04-21] MEDS: ISOSORBIDE MONONITRATE ER 30 MG TAB.ER.24H PO SCH (07:54)
[2020-04-21] MEDS: CLOPIDOGREL 75 MG TAB PO SCH (07:54)
[2020-04-21] MEDS: PANTOPRAZOLE 40 MG TABLET PO SCH (07:54)
[2020-04-21] MEDS: ASPIRIN 81 MG PO SCH (07:54)
[2020-04-21] MEDS: THIAMINE 100 MG TAB PO SCH (07:54)
[2020-04-21 11:13] LABS: Glucose,Whole Blood 357 mg/dL (75-99)
[2020-04-21 11:38] VITALS: BP 111/63; PULSE 63
--- NOTE | 2020-04-21 12:44 | P.DS ---
Providers Date of admission: 04/16/20 14:33 Expected date of discharge: 04/21/20 Attending physician: Justin Kamara MD Consults: 04/16/20 14:33 Consult Physician Stat Consulting Provider: Elisabeth Michaud Consult Reason/Comments: critical care Do you want consulting provider notified?: Already Contacted Consult Physician Urgent Consulting Provider: Chandra Urias Consult Reason/Comments: cardiac eval and tx Do you want consulting provider notified?: Yes 04/18/20 15:17 Consult Physician Routine Consulting Provider: Manjinder Rg Consult Reason/Comments: possible IPR Do you want consulting provider notified?: Yes Primary care physician: Sindy Kamara - Discharge Diagnosis(es) (1) Alcohol withdrawal Current Visit: Yes Status: Acute (2) Hypertension Current Visit: Yes Status: Acute (3) Elevated troponin Current Visit: Yes Status: Acute (4) Diabetic ketoacidosis Current Visit: Yes Status: Acute (5) Coronary artery disease Current Visit: Yes Status: Acute Hospital Course: Mr. Gonzalez is a 65-year-old male with a past medical history of insulin- dependent diabetes mellitus, coronary artery disease status post CABG, COPD, fibromyalgia, GERD, history of GI bleed, hypertension, hyperlipidemia, obstructive sleep apnea, severe peripheral vascular disease, bilateral lower extremity neuropathy, multiple vascular procedures done for bilateral lower extremities coming in with a chief complaint of vomiting and fatigue. Patient is a poor historian, his friend and son at the bedside and tried to provide as the history. His friend mentions that for the past 3 to 4 weeks patient has decreased p.o. intake and for 1 week he has been having generalized weakness. Patient mentioned that for the past couple of days he did not take his insulin. He denies having any fevers chills or rigors. He was only complaining of generalized weakness. Patient also has history of extensive alcohol abuse, he drinks 2/5 every day. In the emergency patient had EKG done that was showing normal sinus rhythm with no acute ST or T wave changes. He had a white count of 12.5, hemoglobin 16.5 with MCV 100.1, sodium 132, potassium 4.7, chloride 92, bicarb 5, BUN 40, creatinine 1.83, blood glucose of 716, troponin 0 0.764, amylase 2632, lipase 2077. So the patient was found to be in DKA, he was started on insulin drip and due to elevated troponins he was started on heparin drip as well and admitted to the ICU for further management. Pt was seen by Pulmonary and Cardiology. His anion gap closed and pt was transitioned to subcutaneous basal and sliding scale insulin. He was maintained on heparin drip, troponin were trended and peaked at 0.578. He underwent echo which showed normal LVEF and valvular function. His heparin was discontinued and pt resumed regular cardiac medications. Pt's chest and abdominal pain did reso lve and he worked with PT. Due to his persistent weakness he was recommended subacute rehab. Pt is discharged in stable condition and recommended to follow up with his PCP and Senior Accountant Analyst. Discharge exam: General: well nourished, well developed, NAD. Vitals reviewed HENT: normocephalic, mucus membranes moist Lungs: normal respiratory effort, no wheezes or rales CV: Regular rate and rhythm, no murmur. Peripheral pulses 2+ Abdomen: soft, nondistended, no organomegaly Skin: warm and dry. Neuro: A&Ox3, normal mood and affect Patient Condition at Discharge: Stable Plan - Discharge Summary Discharge Rx Participant: Yes New Discharge Prescriptions: New Sacubitril/Valsartan [Entresto 49 mg-51 mg Tablet] 1 each PO BID #60 tablet Continue Insulin NPL/Insulin Lispro [humaLOG MIX 75-25 VIAL] 70 unit SQ HS Insulin NPL/Insulin Lispro [humaLOG MIX 75-25 VIAL] 90 unit SQ AC-BRKFST Clopidogrel [Plavix] 75 mg PO DAILY Metoprolol Tartrate [Lopressor] 50 mg PO BID Furosemide [Lasix] 40 mg PO DAILY Ranolazine [Ranexa] 500 mg PO BID Isosorbide Mononitrate [Isosorbide Mononitrate ER] 30 mg PO DAILY Ergocalciferol [Vitamin D2 (DRISDOL)] 50,000 unit PO Q7D Cetirizine HCl [Zyrtec] 10 mg PO DAILY Potassium Chloride ER [K-Dur 10] 20 meq PO DAILY Omeprazole 20 mg PO DAILY Pregabalin [Lyrica] 150 mg PO TID Acetaminophen [Tylenol Extra Strength] 500 - 1,000 mg PO DAILY PRN PRN Reason: Pain HYDROcodone/APAP 10-325MG [[place] 10-325] 1 tab PO QID PRN PRN Reason: Pain Aspirin EC [Ecotrin Low Dose] 81 mg PO DAILY Atorvastatin [Lipitor] 40 mg PO HS Multivitamins, Thera [Multivitamin (formulary)] 1 tab PO DAILY Discontinued Sacubitril/Valsartan [Entresto 49 mg-51 mg Tablet] 1 tab PO DAILY Discharge Medication List Acetaminophen [Tylenol Extra Strength] 500 - 1,000 mg PO DAILY PRN 01/22/19 [History] Cetirizine HCl [Zyrtec] 10 mg PO DAILY 01/22/19 [History] Clopidogrel [Plavix] 75 mg PO DAILY 01/22/19 [History] Ergocalciferol [Vitamin D2 (DRISDOL)] 50,000 unit PO Q7D 01/22/19 [History] Furosemide [Lasix] 40 mg PO DAILY 01/22/19 [History] HYDROcodone/APAP 10-325MG [[place] 10-325] 1 tab PO QID PRN 01/22/19 [History] Insulin NPL/Insulin Lispro [humaLOG MIX 75-25 VIAL] 70 unit SQ HS 01/22/19 [History] Insulin NPL/Insulin Lispro [humaLOG MIX 75-25 VIAL] 90 unit SQ AC-BRKFST 01/22/19 [History] Isosorbide Mononitrate [Isosorbide Mononitrate ER] 30 mg PO DAILY 01/22/19 [History] Metoprolol Tartrate [Lopressor] 50 mg PO BID 01/22/19 [History] Omeprazole 20 mg PO DAILY 01/22/19 [History] Potassium Chloride ER [K-Dur 10] 20 meq PO DAILY 01/22/19 [History] Pregabalin [Lyrica] 150 mg PO TID 01/22/19 [History] Ranolazine [Ranexa] 500 mg PO BID 01/22/19 [History] Aspirin EC [Ecotrin Low Dose] 81 mg PO DAILY 04/16/20 [History] Atorvastatin [Lipitor] 40 mg PO HS 04/16/20 [History] Multivitamins, Thera [Multivitamin (formulary)] 1 tab PO DAILY 04/17/20 [History] Sacubitril/Valsartan [Entresto 49 mg-51 mg Tablet] 1 each PO BID #60 tablet 04/20/20 [Rx] Follow up Appointment(s)/Referral(s): Sindy Kamara DO [Primary Care Provider] - 1-2 days Discharge Disposition: TRANSFER TO SNF/ECF
== END 2020-04-21 14:08 | DRG 637 ==
LOC: EC 12:32 → 2SICU 14:33 → 5NMEDONC 04-18 23:19
PROVIDERS: ADMIT Family Medicine; ATTEND Family Medicine
DX: E10.10 Type 1 diabetes mellitus with ketoacidosis without coma (principal); I21.4 Non-ST elevation (NSTEMI) myocardial infarction; K85.90 Acute pancreatitis without necrosis or infection, unspecified; F10.239 Alcohol dependence with withdrawal, unspecified; I50.42 Chronic combined systolic (congestive) and diastolic (congestive) heart failure; I11.0 Hypertensive heart disease with heart failure; E10.42 Type 1 diabetes mellitus with diabetic polyneuropathy; E10.51 Type 1 diabetes mellitus with diabetic peripheral angiopathy without gangrene; J44.9 Chronic obstructive pulmonary disease, unspecified; Z79.4 Long term (current) use of insulin; Z20.828 Contact with and (suspected) exposure to other viral communicable diseases; T38.3X6A Underdosing of insulin and oral hypoglycemic [antidiabetic] drugs, initial encounter; Z91.14 Patient's other noncompliance with medication regimen; E86.0 Dehydration; D75.89 Other specified diseases of blood and blood-forming organs; I08.1 Rheumatic disorders of both mitral and tricuspid valves; G47.33 Obstructive sleep apnea (adult) (pediatric); E78.5 Hyperlipidemia, unspecified; I25.10 Atherosclerotic heart disease of native coronary artery without angina pectoris; I25.2 Old myocardial infarction; K21.9 Gastro-esophageal reflux disease without esophagitis; M79.7 Fibromyalgia; Z79.82 Long term (current) use of aspirin; Z79.02 Long term (current) use of antithrombotics/antiplatelets; Z79.899 Other long term (current) drug therapy; Z87.891 Personal history of nicotine dependence; Z95.1 Presence of aortocoronary bypass graft; Z95.5 Presence of coronary angioplasty implant and graft; Z87.19 Personal history of other diseases of the digestive system; Z88.8 Allergy status to other drugs, medicaments and biological substances
CPT/HCPCS: 36415; 71046; 80048; 80051; 80053; 80061; 81001; 82009; 82150; 82272; 82553; 82565; 82947; 83690; 83735; 84100; 84484; 84520; 85025; 85610; 85730; 87635; 93005; 93306; 96361; 96365; 96375; 96376; 99291

== ENCOUNTER 2020-04-29 18:07 | Emergency (ER) | payer MEDICARE ==
[2020-04-29 18:47] LABS: Glucose,Whole Blood 381 mg/dL (75-99)
[2020-04-29 19:02] LABS: Basophils # (A) 0.1 k/uL (0-0.2); Basophils % (A) 2 %; Eosinophils # (A) 0.1 k/uL (0-0.7); Eosinophils % (A) 1 %; HCT 41.3 % (39.0-53.0); HGB 13.8 gm/dL (13.0-17.5); Lymphocytes # (A) 1.4 k/uL (1.0-4.8); Lymphocytes % (A) 30 %; MCH 31.3 pg (25.0-35.0); MCHC 33.3 g/dL (31.0-37.0); Mean Platelet Volume 7.4; Monocytes # (A) 0.3 k/uL (0-1.0); Monocytes % (A) 7 %; Neutrophils # (A) 2.7 k/uL (1.3-7.7); Neutrophils % (A) 57 %; Platelet Count 193 k/uL (150-450); RBC 4.39 m/uL (4.30-5.90); RDW 12.3 % (11.5-15.5); WBC 4.8 k/uL (3.8-10.6)
[2020-04-29 19:10] LABS: ALT 55 U/L (4-49); AST 54 U/L (17-59); African American GFR (CKD) 89 (>60 ml/min/1.73 sqM); Albumin 3.5 g/dL (3.5-5.0); Alkaline Phosphatase 153 U/L (38-126); Anion Gap 7 mmol/L; Blood Urea Nitrogen 28 mg/dL (9-20); Calcium 9.4 mg/dL (8.4-10.2); Carbon Dioxide 27 mmol/L (22-30); Chloride 98 mmol/L (98-107); Glucose 387 mg/dL (74-99); Magnesium 2.1 mg/dL (1.6-2.3); Non-African American GFR(CKD) 77 (>60 ml/min/1.73 sqM); Phosphorus 4.2 mg/dL (2.5-4.5); Potassium 4.9 mmol/L (3.5-5.1); Sodium 132 mmol/L (137-145)
[2020-04-29 19:32] LABS: Appearance,Urine Clear (Clear); Bilirubin,Urine Negative (Negative); Blood,Urine Negative (Negative); Color,Urine Light Yellow; Glucose,Urine (UA) 4+ (Negative); Ketones,Urine Negative (Negative); Leukocyte Esterase,Urine Negative (Negative); Nitrite,Urine Negative (Negative); Protein,Urine Trace (Negative); Specific Gravity,Urine 1.021 (1.001-1.035); Urobilinogen,Urine <2.0 mg/dL (<2.0)
[2020-04-29] MEDS ORDERED: SODIUM CHLORIDE 0.9% 500 ML 500 ML IV ONE (19:40)
--- NOTE | 2020-04-29 19:46 | CT ---
EXAMINATION TYPE: CT brain wo con DATE OF EXAM: 04/29/2020 COMPARISON: None HISTORY: ams, weakness, changes in vision CT DLP: 1107.4 mGycm Automated exposure control for dose reduction was used. There is cerebral cortical atrophy. There is some patchy hypodensity in the periventricular white mat ter. There are small lacunar infarcts in the anterior internal capsule bilaterally. There is no midli ne shift. There is 7 mm focus of increased density in the left side of the nia with adjacent small h ypodensity. This could be hemorrhagic lacunar infarct of the nia. There is also a 6 mm focus increas ed density in the white matter left cerebellar hemisphere that also could be hemorrhagic lacunar infa rct. Calvarium is intact. The skull base is intact. IMPRESSION: Possible small acute hemorrhagic lacunar infarcts of the left side of the nia and the left cerebella r hemisphere white matter. Cerebral atrophy. Multiple small bilateral old internal capsule lacunar infarcts.
--- NOTE | 2020-04-29 19:49 | XR ---
EXAMINATION TYPE: XR chest 2V DATE OF EXAM: 04/29/2020 COMPARISON: 04/16/2020 HISTORY: Weakness TECHNIQUE: FINDINGS: There is no heart failure nor confluent pneumonic infiltrate. Costophrenic angles are clear . Bony thorax is intact. There are no hilar masses. IMPRESSION: No active cardiopulmonary disease. No change.
--- NOTE | 2020-04-29 20:29 | ED ---
General Adult HPI <Trent Gaspar - Last Filed: 04/30/20 20:11> - General Source: patient, RN notes reviewed, old records reviewed Mode of arrival: ambulatory Limitations: no limitations <Trent Jones - Last Filed: 04/30/20 20:12> - General Chief complaint: Weakness Stated complaint: Hyperglycemia Time Seen by Provider: 04/29/20 18:20 - History of Present Illness Initial comments: 65-year-old male patient with past history significant for coronary artery disease, COPD, type 2 diabetes poorly controlled, multiple prior stent placements presents to ED for evaluation of elevated blood sugar and visual changes. Patient had an admission 04/16 for DKA. Patient is somewhat of a poor historian. Patient reports that about a week before his hospital admission he believes that he had a mental status change and some possible gait abnormalities. He reports that he has a history of diabetic retinopathy however the last 3 or 4 days his vision has been worse. Patient reports it is very blurr y. Patient denies any headache or weakness upper or lower extremities. Denies any chest pain or shortness of breath. Denies any other acute complaints. Systemic: Pt denies fatigue, fever/chills, rash. Pt denies weakness, night sweats, weight loss. Neuro: Pt denies headache, syncope or pre-syncope. HEENT: Pt denies ocular discharge or irritation, otalgia, rhinorrhea, pharyngitis or notable lymphadenopathy. Cardiopulmonary: Pt denies chest pain, SOB, heart palpitations, dyspnea on exertion. Abdominal/GI: Pt denies abdominal pain, n/v/d. : Pt denies dysuria, burning w/ urination, frequency/urgency. Denies new onset urinary or bowel incontinence. MSK: Pt denies myalgia, loss of strength or function in extremities. Neuro: Pt denies new onset weakness, paresthesias. (Trent Jones) - Related Data Home Medications Medication Instructions Recorded Confirmed Acetaminophen [Tylenol Extra 500 - 1,000 mg PO DAILY PRN 01/22/19 04/17/20 Strength] Cetirizine HCl [Zyrtec] 10 mg PO DAILY 01/22/19 04/17/20 Clopidogrel [Plavix] 75 mg PO DAILY 01/22/19 04/17/20 Ergocalciferol [Vitamin D2 50,000 unit PO Q7D 01/22/19 04/17/20 (DRISDOL)] Furosemide [Lasix] 40 mg PO DAILY 01/22/19 04/17/20 HYDROcodone/APAP 10-325MG [[place] 1 tab PO QID PRN 01/22/19 04/17/20 10-325] Insulin NPL/Insulin Lispro 70 unit SQ HS 01/22/19 04/17/20 [humaLOG MIX 75-25 VIAL] Insulin NPL/Insulin Lispro 90 unit SQ AC-BRKFST 01/22/19 04/17/20 [humaLOG MIX 75-25 VIAL] Isosorbide Mononitrate [Isosorbide 30 mg PO DAILY 01/22/19 04/17/20 Mononitrate ER] Metoprolol Tartrate [Lopressor] 50 mg PO BID 01/22/19 04/17/20 Omeprazole 20 mg PO DAILY 01/22/19 04/17/20 Potassium Chloride ER [K-Dur 10] 20 meq PO DAILY 01/22/19 04/17/20 Pregabalin [Lyrica] 150 mg PO TID 01/22/19 04/17/20 Ranolazine [Ranexa] 500 mg PO BID 01/22/19 04/17/20 Aspirin EC [Ecotrin Low Dose] 81 mg PO DAILY 04/16/20 04/17/20 Atorvastatin [Lipitor] 40 mg PO HS 04/16/20 04/17/20 Multivitamins, Thera [Multivitamin 1 tab PO DAILY 04/17/20 04/17/20 (formulary)] Previous Rx's Medication Instructions Recorded Sacubitril/Valsartan [Entresto 49 1 each PO BID #60 tablet 04/20/20 mg-51 mg Tablet] Allergies Allergy/AdvReac Type Severity Reaction Status Date / Time albiglutide [From Tanzeum] Allergy Diarrhea Verified 04/29/20 18:16 duloxetine HCl Allergy Swelling Verified 04/29/20 18:16 [From Cymbalta] Review of Systems ROS Other: All systems not noted in ROS Statement are negative. <Trent Gaspar - Last Filed: 04/30/20 20:11> ROS Other: All systems not noted in ROS Statement are negative. <Trent Jones - Last Filed: 04/30/20 20:12> ROS Statement: Those systems with pertinent positive or pertinent negative responses have been documented in the HPI. Past Medical History Past Medical History: Coronary Artery Disease (CAD), Heart Failure, COPD, Diabetes Mellitus, Fibromyalgia, GERD/Reflux, GI Bleed, Hyperlipidemia, Hypertension, Myocardial Infarction (NH), Sleep Apnea/CPAP/BIPAP, Vascular Disorder Additional Past Medical History / Comment(s): RECTAL BLEEDING. BRIUSES EASILY. NO TX FOR SLEEP APNEA. NEUROPATHY FEET. Last Myocardial Infarction Date:: History of Any Multi-Drug Resistant Organisms: None Reported Past Surgical History: Coronary Bypass/CABG, Heart Catheterization With Stent Additional Past Surgical History / Comment(s): HEART STENTS X12. TRIPLE CABG. RT LEG VASCULAR SURG X5, LT LEG VASCULAR SURG X3. MYRTLE EYE SURG. COLONOSCOPY. Past Anesthesia/Blood Transfusion Reactions: No Reported Reaction Date of Last Stent Placement:: 07/2018 Past Psychological History: No Psychological Hx Reported Smoking Status: Former smoker Past Alcohol Use History: Daily Past Drug Use History: None Reported - Past Family History Mother Family Medical History: Cancer <Trent Jones - Last Filed: 04/30/20 20:12> General Exam Limitations: no limitations <Trent Jones - Last Filed: 04/30/20 20:12> - General Exam Comments Initial Comments: Constitutional: NAD, AOX3, Pt has pleasant affect. HEENT: NC/AT, trachea midline, neck supple, no lymphadenopathy.External ears appear normal, without discharge. Mucous membranes moist. Eyes PERRLA, Horizontal nystagmus, left eye deviated medially left eye lateral movement not intact. There is no scleral icterus. No pallor noted. Retinal exam did not reveal any obvious hemorrhage or detachment. Cardiopulmonary: RRR, no murmurs, rubs or gallops, no JVD noted. Lungs CTAB in anterior and posterior rangel. No peripheral edema. IOP 25 bilaterally. Abdominal exam: Abdomen soft and non-distended. Abdomen non-tender to palpation in all 4 quadrants. Bowel sounds active in LLQ. No hepatosplenomegaly. No ecchymosis Neuro: CN II-XII intact w/ exception of EOM. No nuchal rigidity. No raccon eyes, no pinzon sign, no hemotympanum. No cervical spinal tenderness. NIH 3. MSK: No posterior calf tenderness bilaterally, homans sign negative bilaterally. Posterior tibialis and radial pulse +2 bilaterally. Sensation intact in upper and lower extremities. Full active ROM in upper and lower extremities, 5/5 stregnth. (Trent Jones) Course <Trent Gaspar - Last Filed: 04/30/20 20:11> Vital Signs 04/29/20 04/29/20 04/29/20 18:10 21:00 21:13 Temperature 98.7 F 97.0 F L Pulse Rate 89 80 79 Respiratory 18 16 Rate Blood Pressure 167/81 193/94 192/94 O2 Sat by Pulse 98 96 99 Oximetry 04/29/20 04/29/20 04/29/20 21:17 21:27 21:36 Temperature Pulse Rate 64 60 Respiratory 18 16 Rate Blood Pressure 166/77 169/74 164/74 O2 Sat by Pulse Oximetry - Reevaluation(s) Reevaluation #1: 04/29/20 20:31 Patient reexamined and reevaluated by myself, Dr. Gaspar. I agree with PA findings. This includes diagnostic interpretation and treatment plan. CT report reviewed. On reevaluation patient does have horizontal nystagmus even at rest. Patient does have deviation of the left eye towards the midline with faculty with lateral gaze. No weakness of extremities. Cranial nerves otherwise intact. Family states patient has complained of visual loss, especially over the past few days. This could've been occurring possibly up to 2 weeks. Patient has also had some increased difficulty with his gait which was somewhat chronic previously however is worse. Patient has had also some increase in his chronic confusion. Neural interventional list has been paged. Patient is getting loaded up in the stroke robot. Patient and family are updated. 04/29/20 20:38 Case was discussed with Dr. Malik who will review the films and also does request CTA. He agrees with probable transfer but will call back after reviewing the films. 04/29/20 20:43 Case again discussed with Dr. Malik who recommends keeping systolic blood pressure 160 and then transfer once CTA is done. 04/29/20 20:48 Case also discussed with Dr. Carpio at [facility], who will accept tra nsfer. Blood pressure will be rechecked. Patient will be given labetalol as needed to keep under 160. (Trent Gaspar) Medical Decision Making - Lab Data Result diagrams: 04/29/20 18:51 04/29/20 18:51 <Trent Gaspar - Last Filed: 04/30/20 20:11> - Lab Data Result diagrams: 04/29/20 18:51 04/29/20 18:51 - EKG Data -: EKG Interpreted by Me (and Dr. Gaspar ) <Trent Jones - Last Filed: 04/30/20 20:12> - Medical Decision Making 65-year-old male patient presents ED for evaluation of visual changes hyperglycemia. Pt VS displayed mild hypertension. Laboratory investigations revealed mild hyperglycemia. Physical exm revealed horizontal nystagmus, left eye mild deviation horizontal EOM left eye not intact. CT brain without contrast displayed possible small acute hemorrhagic lacunar infarct on the left side of the nia and the left cerebellar hemisphere white matter. Multiplel old internal capsule infarcts. Case was discussed with Dr. Gaspar discussed case with Dr. Malik who recommended CTA, transfer, systolic blood pressure control <160 mmHg. ' 2100: Patient blood pressure found be elevated on recheck. Patient administered labetalol, will be sent to medical clinic home with a PRN of labetalol that EMS May administer. (Trent Jones) - Lab Data Lab Results 04/29/20 04/29/20 04/29/20 Range/Units 18:43 18:51 18:51 WBC 4.8 (3.8-10.6) k/uL RBC 4.39 (4.30-5.90) m/uL Hgb 13.8 (13.0-17.5) gm/dL Hct 41.3 (39.0-53.0) % MCV 94.0 (80.0-100.0) fL MCH 31.3 (25.0-35.0) pg MCHC 33.3 (31.0-37.0) g/dL RDW 12.3 (11.5-15.5) % Plt Count 193 (150-450) k/uL Neutrophils % 57 % Lymphocytes % 30 % Monocytes % 7 % Eosinophils % 1 % Basophils % 2 % Neutrophils # 2.7 (1.3-7.7) k/uL Lymphocytes # 1.4 (1.0-4.8) k/uL Monocytes # 0.3 (0-1.0) k/uL Eosinophils # 0.1 (0-0.7) k/uL Basophils # 0.1 (0-0.2) k/uL Sodium (137-145) mmol/L Potassium (3.5-5.1) mmol/L Chloride (98-107) mmol/L Carbon Dioxide (22-30) mmol/L Anion Gap mmol/L BUN (9-20) mg/dL Creatinine (0.66-1.25) mg/dL Est GFR (CKD-EPI)AfAm (>60 ml/min/1.73 sqM) Est GFR (CKD-EPI)NonAf (>60 ml/min/1.73 sqM) Glucose (74-99) mg/dL POC Glucose (mg/dL) 381 H (75-99) mg/dL POC Glu Front End Ui Developer ID Terra Romo Calcium (8.4-10.2) mg/dL Phosphorus (2.5-4.5) mg/dL Magnesium (1.6-2.3) mg/dL Total Bilirubin (0.2-1.3) mg/dL AST (17-59) U/L ALT (4-49) U/L Alkaline Phosphatase (38-126) U/L Troponin I (0.000-0.034) ng/mL Total Protein (6.3-8.2) g/dL Albumin (3.5-5.0) g/dL Urine Color Light Yellow Urine Appearance Clear (Clear) Urine pH 7.0 (5.0-8.0) Ur Specific [place] 1.021 (1.001-1.035) Urine Protein Trace H (Negative) Urine Glucose (UA) 4+ H (Negative) Urine Ketones Negative (Negative) Urine Blood Negative (Negative) Urine Nitrite Negative (Negative) Urine Bilirubin Negative (Negative) Urine Urobilinogen <2.0 (<2.0) mg/dL Ur Leukocyte Esterase Negative (Negative) Acetone, Qual (Negative) 04/29/20 04/29/20 04/29/20 Range/Units 18:51 18:51 21:38 WBC (3.8-10.6) k/uL RBC (4.30-5.90) m/uL Hgb (13.0-17.5) gm/dL Hct (39.0-53.0) % MCV (80.0-100.0) fL MCH (25.0-35.0) pg MCHC (31.0-37.0) g/dL RDW (11.5-15.5) % Plt Count (150-450) k/uL Neutrophils % % Lymphocytes % % Monocytes % % Eosinophils % % Basophils % % Neutrophils # (1.3-7.7) k/uL Lymphocytes # (1.0-4.8) k/uL Monocytes # (0-1.0) k/uL Eosinophils # (0-0.7) k/uL Basophils # (0-0.2) k/uL Sodium 132 L (137-145) mmol/L Potassium 4.9 (3.5-5.1) mmol/L Chloride 98 (98-107) mmol/L Carbon Dioxide 27 (22-30) mmol/L Anion Gap 7 mmol/L BUN 28 H (9-20) mg/dL Creatinine 1.03 (0.66-1.25) mg/dL Est GFR (CKD-EPI)AfAm 89 (>60 ml/min/1.73 sqM) Est GFR (CKD-EPI)NonAf 77 (>60 ml/min/1.73 sqM) Glucose 387 H (74-99) mg/dL POC Glucose (mg/dL) 309 H (75-99) mg/dL POC Glu Front End Ui Developer ID Jeane Rodríguez Calcium 9.4 (8.4-10.2) mg/dL Phosphorus 4.2 (2.5-4.5) mg/dL Magnesium 2.1 (1.6-2.3) mg/dL Total Bilirubin 1.0 (0.2-1.3) mg/dL AST 54 (17-59) U/L ALT 55 H (4-49) U/L Alkaline Phosphatase 153 H (38-126) U/L Troponin I 0.017 (0.000-0.034) ng/mL Total Protein 6.0 L (6.3-8.2) g/dL Albumin 3.5 (3.5-5.0) g/dL Urine Color Urine Appearance (Clear) Urine pH (5.0-8.0) Ur Specific [place] (1.001-1.035) Urine Protein (Negative) Urine Glucose (UA) (Negative) Urine Ketones (Negative) Urine Blood (Negative) Urine Nitrite (Negative) Urine Bilirubin (Negative) Urine Urobilinogen (<2.0) mg/dL Ur Leukocyte Esterase (Negative) Acetone, Qual Negative (Negative) - EKG Data EKG Comments: Ventricular rate 80,. And for 172, QRS 100, QT/QTC 372/429. Normal sinus r hythm, possible left atrial enlargement, left axis deviation, inferior infarct age undetermined, possible anterior infarct indeterminate. Normal EKG. No significant change from prior. No concern for acute ischemia. (Trent Jones) Critical Care Time Critical Care Time: Yes (33) <Trent Jones - Last Filed: 04/30/20 20:12> Disposition Is patient prescribed a controlled substance at d/c from ED?: No - Out of Hospital Transfer - Req. Specs Out of Hospital Transfer - Requested Specifics: Other Emergency Center <Trent Gaspar - Last Filed: 04/30/20 20:11> Is patient prescribed a controlled substance at d/c from ED?: No - Out of Hospital Transfer - Req. Specs Out of Hospital Transfer - Requested Specifics: Other Emergency Center ([facility] Neurology/Neurosurgery) <Trent Jones - Last Filed: 04/30/20 20:12> Clinical Impression: Lacunar hemorrhage, Visual changes, Elevated IOP Narrative: IOP 25 bilaterally (Trent Jones) Disposition: OTHER INSTITUTION NOT DEFINED Condition: Serious Referrals: Sindy Kamara DO [Primary Care Provider] - 1-2 days
[2020-04-29] MEDS ORDERED: INSULIN REGULAR 100 UNIT/ML VIAL SQ ONE (20:46)
[2020-04-29] MEDS ORDERED: LABETALOL 5 MG/ML VIAL MDV IVP STA ×2 (21:03→21:38)
[2020-04-29 21:05] VITALS: TEMP 97
[2020-04-29 21:27] VITALS: PULSE 60; RESP 16
--- NOTE | 2020-04-29 21:33 | CT ---
EXAMINATION TYPE: CT angio head neck DATE OF EXAM: 04/29/2020 COMPARISON: None HISTORY: ams CT DLP: 617.5 mGycm Automated exposure control for dose reduction was used. CONTRAST: Performed with IV Contrast, patient injected with 65 mL of Isovue 370. Multiple axial sections were obtained from the aortic arch to the vertex of the brain with IV contras t. There are 3-D post processed images. 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 There is bilateral art erial flow in the subclavian arteries. There is arterial flow in the common internal and external car otid arteries bilaterally. There is bilateral plaque formation at the carotid artery bifurcations. Th ere is calcification and estimated 60% diameter stenosis at the origin of the left internal carotid a rtery. There is approximately 15% stenosis origin of the right internal carotid artery. There is geraldine rial flow in both vertebral arteries. There is arterial flow in the vertebrobasilar artery system. Th ere is no evidence of carotid or vertebral artery aneurysm or dissection. There is arterial flow in the anterior middle and posterior cerebral arteries. There is no evidence o f intracranial aneurysm or neovascularity. There is no mass effect. There is normal contrast opacific ation of the venous sinuses. There is plaque formation in the distal extracranial left internal carot id artery with some 50% luminal narrowing at the skull base. There is moderate bilateral plaque forma tion in the intracranial internal carotid arteries bilaterally. There is calcification of the wall. I see no evidence of intracranial hemodynamic stenosis. IMPRESSION: Bilateral internal carotid artery stenosis as above that is worse on the left side. 50% stenosis of the distal left internal carotid artery. No intracranial significant angiographic abn ormality.
[2020-04-29 21:37] VITALS: BP 164/74
[2020-04-29 21:39] LABS: Glucose,Whole Blood 309 mg/dL (75-99)
== END 2020-04-29 21:46 | disposition other institution (70) ==
LOC: EC 18:07
DX: I63.81 Other cerebral infarction due to occlusion or stenosis of small artery (principal); H55.00 Unspecified nystagmus; H40.052 Ocular hypertension, left eye; H55.09 Other forms of nystagmus; I11.0 Hypertensive heart disease with heart failure; E11.65 Type 2 diabetes mellitus with hyperglycemia; I50.9 Heart failure, unspecified; G47.30 Sleep apnea, unspecified; I25.2 Old myocardial infarction; E11.40 Type 2 diabetes mellitus with diabetic neuropathy, unspecified; K21.9 Gastro-esophageal reflux disease without esophagitis; M79.7 Fibromyalgia; E78.5 Hyperlipidemia, unspecified; E11.10 Type 2 diabetes mellitus with ketoacidosis without coma; Z79.4 Long term (current) use of insulin; Z79.02 Long term (current) use of antithrombotics/antiplatelets; Z79.82 Long term (current) use of aspirin; Z79.899 Other long term (current) drug therapy; Z88.8 Allergy status to other drugs, medicaments and biological substances; Z87.891 Personal history of nicotine dependence; Z99.89 Dependence on other enabling machines and devices
CPT/HCPCS: 36415; 93005; 80053; 82009; 83735; 84100; 84484; 85025; 81003; 71046; 70496; 70450; 70498; 99285; 96374; 96376; 96361; Q9967